=== PATIENT | male | born 1955 | race Caucasian/White ===

== ENCOUNTER → 2020-05-23 | Outpatient (CLI) | payer OTHER ==
[~2020-05-23] VITALS: Ht 182.9 cm; Wt 129.3 kg
[~2020-05-23] MED LIST: BISOPROLOL FUMAR5 MG PO; CELEBREX 200 M200 M1 PO; CHILDREN'S ASPI81 MG PO; CIALIS10 MG PO; LIPITOR40 MG PO; LYRICA 75 MG CA75 MG PO; METFORMIN HCL500 M3 PO; MICARDIS 80 MG80 MG PO; OMEPRAZOLE40 MG PO; PERCOCET 5-3251 EACH PO
--- NOTE | ~2020-05-23 | HPC ---
[facility] [address] [place] [address] PAIN MANAGEMENT CONSULTATION Name: RAMON CEBALLOS JR Room #: REG [facility].#: [id number] Admission: 05/23/20 Attend Phys: Donald Aguilar MD Discharge: Date of : 55 Report #: [id number] CC: Dannielle Aguilar DATE OF SERVICE: 05/23/2020 CHIEF COMPLAINT: Chronic low back pain with spondylosis. This is a new consultation for chronic pain from Dr. Dannielle Hurley. HISTORY OF PRESENT ILLNESS: The patient is a 65-year-old who has had ongoing pain for nearly 20 years. He had severe discomfort across the lumbosacral segment that he describes it as continuous and aching. Despite the use of chronic opioids, he scores his pain as a 9/10. His impacted pain score 51/70, scoring highest for walking ability, enjoyment of life. His pain interferes with many of his day-to-day activities due to discomfort while standing, walking and bending. When he is sedentary either sitting or lying down, his pain diminishes. He has some radicular component to his pain radiating into his right leg. He also complains periodically of neuropathic symptoms with tingling. Prior pain clinic visits occurred a couple of years ago when he saw Dr. Almaguer. An MRI was performed showing severe stenosis and he was referred to Dr. Day for a laminectomy in March 2019. This did provide some relief of leg pain, but he has continued to complain of ongoing lumbago and axial discomfort. MEDICATIONS: Metformin, Celebrex 200 mg b.i.d., Lyrica ____ mg t.i.d., bisoprolol 5 mg one-half tablet daily, atorvastatin 40 mg daily, telmisartan 80 mg daily, omeprazole 40 mg daily, baby aspirin daily and Cialis 10 mg. ALLERGIES: None. PAST MEDICAL HISTORY: Type 2 diabetes. PAST SURGICAL HISTORY: Laminectomy. He also complains of bilateral thumb pain and had a fusion of his left thumb in 2009. 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 He has not had to take off of work because of pain, but complains about his 60 hours schedule. He is 65 and would like to retire sometime in the future. He lives with his on [place] acres in [facility]. His daughter lives with them. He is able to do some chores around the property. They have horses. He denies use of tobacco and alcohol. REVIEW OF SYSTEMS: Positive for blurred vision, hearing loss, chronic constipation, likely due to his opioids and frequent urination. PHYSICAL EXAMINATION: GENERAL: Pleasant, outgoing gentleman. No signs of overt depression or anxiety. He is 6 feet tall, 285 pounds with a BMI of 38.6. VITAL SIGNS: Blood pressure 145/71, pulse 81, respirations 18, O2 sat 99. He can move independently from sitting to standing position, but his gait is markedly antalgic. He has difficulty standing erect. HEENT: Normal. NECK: Supple with some crepitus. CHEST: Clear to auscultation. CARDIAC: Rhythm is regular. ABDOMEN: Soft. MUSCULOSKELETAL: Examination of the upper extremities reveals a very tender right thumb with most of the tenderness at the metacarpophalangeal joint. No redness or swelling. Spine reveals normal alignment and significant tenderness and discomfort across the lumbosacral segment. There is pain with flexion, extension, ougt-uh-tecu rotation and lateral tilt. Both sides were bad, left slightly worse. There is some mild pain, also over the sacroiliac joint. Straight leg raising is remarkable in that it reproduces intensity of spinal discomfort in both the sitting and supine position without radicular pain. Internal and external rotation of the hips causes some discomfort as well, but most of his pain is in his low back. Deep tendon reflexes are 1+ at knees and ankles. Sensation diminished. MRI predates his surgery. He has a history prior to surgery of significant spinal stenosis at L3-L4 and L4-L5 where the thecal sac is narrowed to 0.6 cm. This high-grade stenosis also creates neural foraminal stenosis. IMPRESSION: 1. Chronic intractable pain syndrome. Lumbar spondylosis with radiculopathy, status post laminectomy. 2. Opioid dependence for chronic pain. He has been on opioids for roughly 10 years. He currently uses oxycodone 10/325 five tablets per day. His MME is 75. Prescription drug monitoring program is not available due to filling his prescriptions in [place]. His opioid risk tool score is 0 suggesting low propensity to addiction. 3. Morbid obesity. 4. Type 2 diabetes. 5. Gamekeeper's thumb, right. RECOMMENDATIONS: 1. MRI of the lumbar spine to review changes since surgery. 2. Consider injection therapy. Epidural injection may provide some temporary, but meaningful relief. He may be a candidate for facet treatments with diagnostic injections. 3. I spoke with Dr. Hurley who is no longer seeing new Medicare patients and in fact is encouraging our patients to see new physicians that she will be leaving [facility] in the next 2 months. I will take on opioid prescribing but the patient will need a new primary care physician. We discussed our opioid program and I have signed him to an opioid agreement with the goal of lowering his opioid use to less than 50 morphine milligram equivalents. We will make that foreign exchange position clerk the course of the next couple of months. We reviewed potential risks and benefits and the importance of safeguarding medication. We will discuss further when he returns with his MRI for further evaluation. Followup visit scheduled in 1 week. Injection at that time, likely an epidural steroid injection depending upon what we see on the MRI. By: [id number] Donald Aguilar MD /nt
[2020-05-23 10:43] VITALS: BP 145/71
--- NOTE | 2020-05-23 10:56 | NUR ---
Pain Clinic Assessment: 1. History of Osteoarthritis: SPINE History of Rheumatoid Arthritis: Not Applicable 2. Height: 6 ft. 0 in. 182.9 cm. Weight: 285.0 lb. oz. 129.276 kg. Patient's BMI: 38.6 3. Vital Signs: BP: 145/71 Pulse: 65 Resp: 18 Temp: 02 Sat: 99 ECG Mon: 4. Pain Intensity: 9 5. Fall Risk: Dizziness: N Needs help standing or walking: N Fallen in the last 3 months: N Fall risk comments: 6. Patient on Blood Thinner: None 7. History of Hypertension: Y 8. Opioid Therapy greater than 6 weeks: Y Opiate Contract Signed: 9. Risk Assessment Tool Provided: low-0 10. Functional Assessment Tool: 11. Recreational Drug Use: Never Drug Type: Tobacco Use: Former Smoker Tobacco Type: Amount or Packs/day: How Many Years: Alcohol Use: No Frequency: Quant:
== END ==
LOC: PAIN 06:49
PROVIDERS: ATTEND Anesthesiology Pain Medicine
DX: M47.26 Other spondylosis with radiculopathy, lumbar region (principal); S63.641D Sprain of metacarpophalangeal joint of right thumb, subsequent encounter; E11.9 Type 2 diabetes mellitus without complications; E66.01 Morbid (severe) obesity due to excess calories; F11.20 Opioid dependence, uncomplicated; G89.29 Other chronic pain; Z88.8 Allergy status to other drugs, medicaments and biological substances; Z79.899 Other long term (current) drug therapy

== ENCOUNTER → 2020-06-13 | Outpatient (CLI) | payer OTHER ==
[~2020-06-13] VITALS: Ht 182.9 cm; Wt 137.3 kg
[~2020-06-13] MED LIST changes: +DICLOFENAC SODI75 MG PO; +ENDOCET 10-3251 EACH PO; +PERCOCET 10-321 EAC1 PO
[2020-06-13 08:47] VITALS: BP 133/59
== END | disposition home or self-care (01) ==
LOC: PAIN 06:52
PROVIDERS: ATTEND Anesthesiology Pain Medicine
DX: M47.816 Spondylosis without myelopathy or radiculopathy, lumbar region (principal); M96.1 Postlaminectomy syndrome, not elsewhere classified; G89.29 Other chronic pain; I10 Essential (primary) hypertension; Z98.890 Other specified postprocedural states; Z79.899 Other long term (current) drug therapy; Z87.891 Personal history of nicotine dependence

== ENCOUNTER → 2020-06-15 | Outpatient (CLI) | payer OTHER | LOC: SJCVC 10:39 | PROVIDERS: ATTEND Internal Medicine Cardiovascular Disease | DX: R94.31 Abnormal electrocardiogram [ECG] [EKG] (principal); I25.10 Atherosclerotic heart disease of native coronary artery without angina pectoris; I10 Essential (primary) hypertension; E78.00 Pure hypercholesterolemia, unspecified; E78.5 Hyperlipidemia, unspecified; E11.9 Type 2 diabetes mellitus without complications; G47.33 Obstructive sleep apnea (adult) (pediatric); I44.7 Left bundle-branch block, unspecified; Z79.899 Other long term (current) drug therapy ==

== ENCOUNTER → 2020-06-21 | Outpatient (CLI) | payer OTHER ==
[~2020-06-21] VITALS: Ht 182.9 cm; Wt 132.5 kg
[2020-06-21 09:44] VITALS: BP 126/70
--- NOTE | 2020-06-21 10:02 | NUR ---
Pain Clinic Assessment: 1. History of Osteoarthritis: SPINE History of Rheumatoid Arthritis: Not Applicable 2. Height: 6 ft. 0 in. 182.9 cm. Weight: 292.0 lb. oz. 132.451 kg. Patient's BMI: 39.6 3. Vital Signs: BP: 126/70 Pulse: 60 Resp: 16 Temp: 02 Sat: 98 ECG Mon: 4. Pain Intensity: 7 5. Fall Risk: Dizziness: N Needs help standing or walking: N Fallen in the last 3 months: N Fall risk comments: 6. Patient on Blood Thinner: None 7. History of Hypertension: Y 8. Opioid Therapy greater than 6 weeks: Y Opiate Contract Signed: 9. Risk Assessment Tool Provided: low-0 10. Functional Assessment Tool: 11. Recreational Drug Use: Never Drug Type: Tobacco Use: Former Smoker Tobacco Type: Amount or Packs/day: How Many Years: Alcohol Use: No Frequency: Quant:
--- NOTE | 2020-06-22 11:46 | HPC ---
[facility] [place] [address] PAIN MANAGEMENT CONSULTATION Name: RAMON CEBALLOS JR Room #: REG [facility].#: [id number] Admission: 06/21/20 Attend Phys: Ruslan Hilario DO Discharge: Date of : 55 Report #: [id number] THIS REPORT FOR: cc: Dannielle Hurley MD, Julie MD Johnson, James E. DO ~ DATE OF SERVICE: 06/21/2020 REFERRING PHYSICIAN: Dong Colorado MD CHIEF COMPLAINT: Axial back pain. HISTORY OF PRESENT ILLNESS: As you know, the patient is a very pleasant 65-year-old male, followed by my partner, Dr. Donald Aguilar for chronic axial back pain issues. The patient underwent medial branch nerve blocks under fluoroscopic guidance at the visit of 06/13/2020. The patient reported at the time of the procedure, his pain was a level of 9/10. Prior to his discharge, his pain had dropped to 7/10. Unfortunately, he is on no significant further improvement in symptoms. He returns today in followup visit scheduled to undergo bilateral medial branch blocks again in hopes of improving pain with plans to move forward with radiofrequency lesioning. He is placing his pain at 7/10. The patient indicates pain is exacerbated with standing, walking and bending and improves with sitting, lying down. He returns to discuss the possibility of undergoing the second in the medial branch blocks in preparation for moving forward without radiofrequency lesioning. CURRENT MEDICATIONS: None. SOCIAL HISTORY: The patient denies tobacco, alcohol, IV or illicit drug use. 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 He continues to work. He is unaccompanied today. IMAGING: There is no new imaging available. PQRS: The patient has known arthritic changes of the lumbar spine. No rheumatoid arthritis. He is placing current pain score 7/10. He is not a fall risk, has not had a fall in last 3 months. He is not on blood thinners, but is treated for hypertension. He is on chronic opioids and has a low opioid addiction potential. Pain impact 67, 48/70, severe near complete interference of daily activities secondary to pain. PHYSICAL EXAMINATION: VITAL SIGNS: Blood pressure 126/70, pulse 60, respiratory rate 16 and unlabored. The patient is 98% on room air, height 6 feet tall, weight 292 pounds, BMI calculated 39.6. [address] [address] PAIN MANAGEMENT CONSULTATION Name: RAMON CEBALLOS [facility] [id number] Admission: 06/21/20 Attend Phys: Ruslan Hilario DO Discharge: Date of : 55 Report #: [id number] GENERAL: Well-developed, well-nourished, well-hydrated, morbidly obese 65-year-old male appearing stated age, pain is rated as 7/10. HEENT: Normocephalic, atraumatic. Pupils equal, round and reactive. EXTREMITIES: Show no clubbing, no cyanosis. No appreciable edema. MUSCULOSKELETAL: Seated straight leg raising negative. Supine straight leg raising negative. Rosa's test is negative. Modified Gaenslen's positive for axial low back pain. Ankle clonus negative. Babinski is negative. ASSESSMENT: 1. Lumbosacral spondylosis without radiculopathy. 2. Facet arthropathy of the lumbar spine. 3. Chronic low back pain. PLAN: 1. The patient has returned today in followup visit per the request of Dr. Aguilar, his original pain physician to undergo medial branch block #2 in the series. Patient reports minimal benefit with the initial medial branch blocks. We did discuss this with him today. Typically, we do not recommend moving forward with medial branch blocks if the efficacy is not noted to be greater than 60-80% improvement in symptoms. We have discussed this with the patient today. The patient is requesting that we provide medial branch blocks today as he is "not sure he gave the injections there full due." He does note improvement in symptoms that improvement he would rate no greater than 50%. He returns for a second in the series of medial branch blocks. If these are successful, we would then discuss possible undergoing medial branch radiofrequency lesioning. The patient has been advised risks and benefits of this procedure, states understood and wished to proceed. 2. No medication changes made at today's visit. The patient will continue current medical therapy as prior prescribed. 3. The patient will contact our clinic once his symptoms return to a normal baseline pain level. At that time, we will discuss with the patient the improvement, he may have noted with her medial branch blocks today. If he does note significant pain improvement, we would recommend moving forward with radiofrequency lesioning. If no significant pain improvement is noted, I would not recommend moving forward with radiofrequency lesioning as the symptoms he is experiencing will not resolve with RFA. The patient is agreeable. He will contact our clinic by phone over the next couple of days. PROCEDURE NOTE DESCRIPTION OF PROCEDURE: Bilateral L2, L3, L4, L5 medial branch nerve blocks under fluoroscopic guidance. This is the second of 2 diagnostic medial branch blocks on the right and left sides that the patient is undergoing. After obtaining written consent, the patient was taken back to the fluoroscopy [address] [address] PAIN MANAGEMENT CONSULTATION Name: RAMON CEBALLOS Room #: REG [facility]#: [id number] Admission: 06/21/20 Attend Phys: Ruslan Hilario DO Discharge: Date of : 55 Report #: [id number] and placed in a prone position on the fluoroscopy table with a pillow under the abdomen to decrease the lumbar lordosis. The skin overlying the lumbosacral area was prepped and draped in an aseptic fashion. The L3 transverse process corresponding to the L2 medial branch nerve, L4 transverse process corresponding to the L3 medial branch nerve and L5 transverse process corresponding to the L4 medial branch nerve on the right and left sides was visualized under AP fluoroscopy. The skin and subcutaneous tissue overlying the target site(s) of injection were anesthetized using 2 mL of 1% lidocaine. A 22-gauge 3-1/2 inch spinal needle with a bent tip was advanced under fluoroscopic guidance using a superior to inferior and lateral to medial approach to the dorsal, superior and medial aspect of the base of the transverse process(es). The needles were then directed ventral, medial and caudad to reach the target location(s). An oblique view facilitated needle placement with properly positioned needles(s) in the middle of the "eye" of the Francisco dog for the medial branch block(s). At each site the needle(s) rested on periosteum. After negative aspiration for heme or CSF, 0.5 mL of lidocaine 2% was slowly injected at each site to avoid forcing the solution away from the target points(s). The needle(s) were then removed. The L5 dorsal ramus block on the right and left sides were performed using a slightly oblique approach under fluoroscopic guidance, placing the needle within the groove between the sacral site and the superior articular process of S1. The needle rested on periosteum. After negative aspiration for heme or CSF, 0.5 mL of lidocaine 2% was slowly injected to avoid forcing the solution away from the target point. The needle was then removed. Sterile bandages were placed over the injection site. There were no apparent complications. The patient tolerated the procedure well and was carefully escorted to the recovery room in stable condition. The VAS was 7/10 before the procedure and 3/10 minutes after the procedure. After meeting discharge criteria, the patient was discharged home. <ELECTRONICALLY SIGNED> By: Ruslan Hilario DO 06/22/20 1146 1607 0200 Ruslan Hilario DO /nt
== END | disposition home or self-care (01) ==
LOC: PAIN 06:53
PROVIDERS: ATTEND Anesthesiology Pain Medicine
DX: M47.817 Spondylosis without myelopathy or radiculopathy, lumbosacral region (principal); M47.816 Spondylosis without myelopathy or radiculopathy, lumbar region; M54.5 Low back pain; G89.29 Other chronic pain; I10 Essential (primary) hypertension; Z98.890 Other specified postprocedural states; Z79.891 Long term (current) use of opiate analgesic; Z79.899 Other long term (current) drug therapy

== ENCOUNTER → 2020-07-13 | Outpatient (CLI) | payer OTHER ==
[~2020-07-13] VITALS: Ht 182.9 cm; Wt 132.4 kg
[2020-07-13 12:30] VITALS: BP 107/55
--- NOTE | 2020-07-13 12:45 | NUR ---
Pain Clinic Assessment: 1. History of Osteoarthritis: SPINE right hand History of Rheumatoid Arthritis: Not Applicable 2. Height: 6 ft. 0 in. 182.9 cm. Weight: 291.8 lb. oz. 132.360 kg. Patient's BMI: 39.6 3. Vital Signs: BP: 107/55 Pulse: 54 Resp: 18 Temp: 02 Sat: 100 ECG Mon: 4. Pain Intensity: 8 5. Fall Risk: Dizziness: N Needs help standing or walking: N Fallen in the last 3 months: N Fall risk comments: 6. Patient on Blood Thinner: None 7. History of Hypertension: Y 8. Opioid Therapy greater than 6 weeks: Y Opiate Contract Signed: 05/23/20 9. Risk Assessment Tool Provided: low-0 10. Functional Assessment Tool: 67/7 11. Recreational Drug Use: Never Drug Type: Tobacco Use: Former Smoker Tobacco Type: Amount or Packs/day: How Many Years: Alcohol Use: No Frequency: Quant:
--- NOTE | 2020-07-15 07:25 | HPC ---
[facility] [address] [place] [address] PAIN MANAGEMENT CONSULTATION Name: RAMON CEBALLOS JR Room #: REG [facility]#: [id number] Admission: 07/13/20 Attend Phys: Lilo Shaver Discharge: Date of : 55 Report #: [id number] THIS REPORT FOR: cc: Ander Gleason Steven F. DO Hocker,Lilo SOTO ~ DATE OF SERVICE: 07/13/2020 REFERRING PHYSICIAN: Dong Colorado MD CHIEF COMPLAINT: Axial back pain. HISTORY OF PRESENT ILLNESS: As you know, this is a pleasant 65-year-old gentleman who returns to the pain clinic today for refill of his opioid medications that he uses to help treat his chronic axial back pain issues. He most recently saw Dr. Ruslan Hilario in our pain clinic and had medial branch blocks bilaterally at 4 levels. He found this procedure to be beneficial at least 75% for greater than 5 hours. Then, it slowly returned. He is now back to baseline and rating his pain today at 8/10 in his low back. He does complain of right thumb pain that has osteoarthritic issues. He has a constant, aching soreness, especially when he walks for a prolonged period of time or stands and bends which he is very busy at his [employer] business. He believes aside from the medial branch block being beneficial, so it is lying down and sitting and his medications. The patient would like refills of his Lyrica and oxycodone today as well as scheduling another medial branch block with Dr. Ruslan Hilario in preparation for hopefully having a radiofrequency ablation if his second block is beneficial. CURRENT MEDICATIONS: Oxycodone 10/325 p.r.n., Voltaren 75 mg b.i.d., aspirin, omeprazole, Micardis, Lipitor, buspirone, Lyrica 75 mg t.i.d., and metformin. PQRS: 1. He has known arthritic changes of his lumbar spine. Denies any rheumatoid arthritis. 2. Height is 6 feet, weight is 291, BMI is 39. 3. Vital signs: 107/55, pulse is 54, respirations 18, oxygen sat is 100. 4. Pain score is 8/10. 5. Denies dizziness, does not need assistance with ambulation. Has not fallen in the last 3 months. 6. The patient is not on any blood thinners, but does take medicine for hypertension. 7. Opioid therapy is greater than 6 weeks; therefore, an opioid signed contract is on the chart. Risk assessment is low. Functional assessment 67/70. 8. Recreational drug use, he denies. He is a former smoker and does not drink alcohol. [address] [address] PAIN MANAGEMENT CONSULTATION Name: RAMON CEBALLOS JR Room #: REG [facility]#: [id number] Admission: 07/13/20 Attend Phys: Lilo Shaver Discharge: Date of : 55 Report #: [id number] According to the prescription monitoring system, the patient is filling appropriately. He did bring his prescription bottle with him today and shows 6 tablets of his medication left. His morphine mEq according to the CDC guidelines is 60 MME. There is a recent opioid agreement on our chart. PHYSICAL EXAMINATION: GENERAL: This is alert and orientated, well-developed, well-nourished, well-hydrated, morbidly obese 65-year-old gentleman who appears his stated age, placing his current pain score at 8/10. HEENT: Normocephalic, atraumatic. Pupils equal, round and reactive to light. He is wearing a mask. EXTREMITIES: No clubbing, no cyanosis, no edema. MUSCULOSKELETAL: Modified Gaenslen's positive for axial low back pain. Seated straight leg raising is negative. Lower extremity strength is symmetrical at 5/5. ASSESSMENT: 1. Lumbar spondylosis without radiculopathy. 2. Facet arthroscopy of the lumbar spine. 3. Chronic low back pain. 4. Lumbar spondylosis. We reviewed the fact that opiate medications are being used to provide analgesia adequate to support activities of daily living, not attempting to achieve a specific pain score on the 0-10 Visual Analog Scale. The current opiate medications are providing sufficient analgesia to allow the patient to participate in activities of daily living. The patient is not exhibiting any aberrant behavior suggestive of drug diversion. The patient is not having any adverse reactions to medications. The patient is not suffering from daytime somnolence or mental acuity changes. The patient is managing opiate-induced constipation with appropriate bsje-aah-fmgyffl agents and dietary considerations. The patient was counseled on concern for caution with operating a motor vehicle while using opiate medications. A physical exam was performed and the patient's functional status was evaluated. All patients with back pain were advised against the bed rest greater than 4 days and were advised to return to normal activities. Pain score assessment was noted and the treatment plan was reviewed with the patient. All current medications, both prescribed and OTC were reviewed and reconciled on the electronic medical record. Tobacco screening was accomplished and smoking cessation was advised when indicated. BMI was noted and diet/exercise modification was recommended for all patients following outside normal parameters. I reviewed with the patient today their responsibilities to [address] [address] PAIN MANAGEMENT CONSULTATION Name: RAMON CEBALLOS JR Room #: REG [facility]#: [id number] Admission: 07/13/20 Attend Phys: Lilo Shaver Discharge: Date of : 55 Report #: [id number] prescription medications, reviewed their responsibility to utilize medications only as prescribed by the physician. They are to seek and receive pain medications only from 1 physician group ( [facility]). They are to use 1 pharmacy and keep the clinic informed if they change pharmacies. Their responsibilities include making followup visits in a timely fashion and to avoid abrupt discontinuation of medication usage. Their responsibilities further include bringing their medications (bottles from the pharmacy with residual pills) to the visit for possible confirmation of pill counts and the patient understands it is their responsibility to submit to random drug screens to ensure both that the medications prescribed are present, and that no other controlled substances are present. All prescriptions provided today were generated electronically. PLAN: 1. We discussed treatment options with the patient today. He finds his medication beneficial in helping control his pain. Unfortunately, he feels that 5 pills of oxycodone was more beneficial than the 4 that we are allowing him to take. I offered him the option of taking 1 supplemental Tylenol twice a day. This would increase his Tylenol intake to 2025 mg per day, well below the limits. We will have Dr. Ruslan Hilario send electronically his oxycodone , #120 to his local pharmacy. 2. The patient does continue his Lyrica medications for his diabetic neuropathy that he finds beneficial in helping his foot pain. Dr. Ruslan Hilario will have a script written for Lyrica 75 mg t.i.d., #270 with 1 refill that the patient may take with him to send to his mail off. The patient would like to schedule his second medial branch block with Dr. Ruslan Hilario since his first one did afford him significant relief of at least 75%. We will seek authorization and schedule that next week for the patient to undergo bilateral L2, L3, L4, L5 medial branch nerve blocks under fluoroscopy. These will be diagnostic tests. If they are beneficial, then we will continue with scheduling him for a radiofrequency ablation. 3. The patient is seen today in collaboration with Dr. Ruslan Hilario. <ELECTRONICALLY SIGNED> By: Lilo Shaver 07/15/20 0725 [id number] 2038 Lilo Shaver /nt
== END ==
LOC: PAIN 06:58
PROVIDERS: ATTEND Clinical Nurse Specialist Adult Health
DX: M47.26 Other spondylosis with radiculopathy, lumbar region (principal); G89.29 Other chronic pain; Z79.891 Long term (current) use of opiate analgesic; Z79.899 Other long term (current) drug therapy

== ENCOUNTER → 2020-07-19 | Outpatient (CLI) | payer OTHER ==
[~2020-07-19] VITALS: Ht 182.9 cm; Wt 131.1 kg
[~2020-07-19] MED LIST changes: +ACETAMINOPHEN500 MG PO
--- NOTE | ~2020-07-19 | HPC ---
[facility] [place] [address] PAIN MANAGEMENT CONSULTATION Name: RAMON CEBALLOS JR Room #: REG [facility].#: [id number] Admission: 07/19/20 Attend Phys: Ruslan Hilario DO Discharge: Date of : 55 Report #: [id number] THIS REPORT FOR: cc: Ander Gleason Steven F. DO Johnson, James E. DO ~ DATE OF SERVICE: 07/19/2020 REFERRING PHYSICIAN: Dr. Dong [place]. CHIEF COMPLAINT: Axial back pain. HISTORY OF PRESENT ILLNESS: As you know, the patient is a pleasant 65-year-old male who returns today in followup visit to undergo medial branch blocks to address the L2, L3, L4, L5 medial branch nerves bilaterally. The patient underwent medial branch blocks at our last visit with reported improvement in symptoms of 80% noted immediately with recurrence of symptoms about 6 hours later. This was consistent with medial branch block. He was established today's appointment to undergo the next in the series. He is placing pain today at 02/04. ALLERGIES: No known drug allergies. CURRENT MEDICATIONS: Acetaminophen, oxycodone, pregabalin, diclofenac, Cialis, aspirin, omeprazole, telmisartan, atorvastatin, bisoprolol, and metformin. SOCIAL HISTORY: The patient denies tobacco, alcohol, IV or illicit drug use. He is unaccompanied at today's visit. IMAGING: No new imaging available. PQRS: The patient has known arthritic changes of the lumbar spine. Denies rheumatoid arthritis. He is placing current pain intensity at 7/10, not a fall risk, has not had a fall in last 3 months. He is not on blood thinners, but is treated for hypertension. He is on chronic opioids and has reportedly low opioid addiction potential based on assessment tool. Pain impact 67 of 70 indicating complete interference of daily activities secondary to pain. PHYSICAL EXAMINATION: VITAL SIGNS: Blood pressure 122/60, pulse is 63, respiratory rate 16 and unlabored. The patient is 100% on room air. Height is 6 feet tall, weight 289 pounds, BMI calculated 39.2. GENERAL: Well-developed, well-nourished, well-hydrated exogenously obese 65-year-old male appearing stated age, pain is rated at 7/10. HEENT: Normocephalic, atraumatic. Pupils equal, round and reactive. The patient is using a face mask in compliance with COVID-19 [place] [address] PAIN MANAGEMENT CONSULTATION Name: LINRAMON NAVA Room #: REG [facility]#: [id number] Admission: 07/19/20 Attend Phys: Ruslan Hilario DO Discharge: Date of : 55 Report #: [id number] EXTREMITIES: Show no clubbing, no cyanosis, no edema. MUSCULOSKELETAL: Lower extremity strength appears symmetrical 5/5. Muscle bulk and tone equal and symmetrical in comparing lower extremities. Seated straight leg raising negative. Supine straight leg raising negative. Rosa's test is negative. Modified Gaenslen's positive for axial low back pain. Lumbar provocation testing including extension, rotation, lateral flexion all intensify axial back pain. ASSESSMENT: 1. Lumbosacral spondylosis without radiculopathy. 2. Facet arthropathy of the lumbar spine. 3. Chronic low back pain. 4. Chronic intractable pain. PLAN: 1. The patient returns today in followup visit to undergo medial branch blocks to address bilateral medial branch nerves of L2, L3, L4 and L5. The patient did very well with previous injection reporting 80% improvement in overall pain initially with a progression of symptoms back to baseline over a period of 6 hours. He returns today in followup visit to undergo the next in the series of blocks. As you are aware, the patient had difficulty with the first set of blocks. They did not provide any improvement. Second set of blocks provided excellent benefit. He has returned today to undergo blocking of the medial branch nerves. If this is then successful, move forward with radiofrequency lesioning. The patient is agreeable with plan. He has been advised risks and benefits, states understood and wished to proceed. 2. No medication changes made at today's visit. The patient will continue current medical therapy as prior prescribed. PROCEDURE NOTE DESCRIPTION OF PROCEDURE: Bilateral L2, L3, L4, L5 medial branch nerve blocks under fluoroscopic guidance. This is the third of 2 diagnostic medial branch blocks on the right and left side that the patient is undergoing. After obtaining written consent, the patient was taken back to the fluoroscopy suite and placed in a prone position on the fluoroscopy table with a pillow under the abdomen to decrease the lumbar lordosis. The skin overlying the lumbosacral area was prepped and draped in an aseptic fashion. The L3 transverse process corresponding the L2 medial branch nerve, L4 transverse process corresponding the L3 medial branch nerve and the L5 transverse process corresponding the L4 medial branch nerve on the right and left side was visualized under AP fluoroscopy. The skin and subcutaneous tissue overlying the target sites of injection were anesthetized using 2 mL of 1% lidocaine. [address] [address] PAIN MANAGEMENT CONSULTATION Name: RAMON CEBALLOS JR [id number] Admission: 07/19/20 Attend Phys: Ruslan MillerNuris Hilario DO Discharge: Date of : 55 Report #: [id number] 22-gauge 3-1/2 inch spinal needle with a bent tip was advanced under fluoroscopic guidance using a superior to inferior and lateral to medial approach to the dorsal, superior and medial aspect of the base of the transverse processes. The needles were then directed ventral, medial and caudad to reach the target locations. An oblique view facilitated needle placement with properly positioned needles in the middle of the "eye" of the Francisco dog for the medial branch blocks. At each site the needles rested on periosteum. After negative aspiration for heme or CSF, 0 mL of Omnipaque dye was injected at each site under live fluoroscopy, demonstrating absence of vascular uptake. After negative aspiration for heme or CSF, 1 mL of bupivacaine 0.5% was slowly injected at each site to avoid forcing the solution away from the target points. The needles were then removed. The L5 dorsal ramus block on the right and left side was performed using a slightly oblique approach under fluoroscopic guidance, placing the needle within the groove between the sacral site and the superior articular process of S1. The needle rested on periosteum. After negative aspiration for heme or CSF, 0 mL of Omnipaque dye was injected at under live fluoroscopy, demonstrating absence of vascular uptake. After negative aspiration for heme or CSF, 1 mL of bupivacaine 0.5% was slowly injected to avoid forcing the solution away from the target point. The needle was then removed. Sterile bandages were placed over the injection site. There were no apparent complications. The patient tolerated the procedure well and was carefully escorted to the recovery room in stable condition. The VAS was 7/10 before the procedure and 1/10 minutes after the procedure. After meeting discharge criteria, the patient was discharged home. By: [id number] Ruslan Hilario DO /nt
[2020-07-19 13:41] VITALS: BP 122/60
--- NOTE | 2020-07-19 13:50 | NUR ---
Pain Clinic Assessment: 1. History of Osteoarthritis: SPINE right hand History of Rheumatoid Arthritis: Not Applicable 2. Height: 6 ft. 0 in. 182.9 cm. Weight: 289.0 lb. oz. 131.090 kg. Patient's BMI: 39.2 3. Vital Signs: BP: 122/60 Pulse: 63 Resp: 16 Temp: 02 Sat: 100 ECG Mon: 4. Pain Intensity: 7 5. Fall Risk: Dizziness: N Needs help standing or walking: N Fallen in the last 3 months: N Fall risk comments: 6. Patient on Blood Thinner: None 7. History of Hypertension: Y 8. Opioid Therapy greater than 6 weeks: Y Opiate Contract Signed: 05/23/20 9. Risk Assessment Tool Provided: low-0 10. Functional Assessment Tool: 67/7 11. Recreational Drug Use: Never Drug Type: Tobacco Use: Former Smoker Tobacco Type: Amount or Packs/day: How Many Years: Alcohol Use: No Frequency: Quant:
== END | disposition home or self-care (01) ==
LOC: PAIN 07:00
PROVIDERS: ATTEND Anesthesiology Pain Medicine
DX: M47.817 Spondylosis without myelopathy or radiculopathy, lumbosacral region (principal); M47.816 Spondylosis without myelopathy or radiculopathy, lumbar region; M54.5 Low back pain; G89.29 Other chronic pain; I10 Essential (primary) hypertension; Z98.890 Other specified postprocedural states; Z79.899 Other long term (current) drug therapy; Z79.891 Long term (current) use of opiate analgesic

== ENCOUNTER → 2020-08-23 | Outpatient (CLI) | payer OTHER ==
[~2020-08-23] VITALS: Ht 182.9 cm; Wt 129.2 kg
[2020-08-23 07:38] VITALS: BP 104/43
--- NOTE | 2020-08-23 07:42 | NUR ---
Pain Clinic Assessment: 1. History of Osteoarthritis: SPINE right hand History of Rheumatoid Arthritis: Not Applicable 2. Height: 6 ft. 0 in. 182.9 cm. Weight: 284.8 lb. oz. 129.185 kg. Patient's BMI: 38.6 3. Vital Signs: BP: 104/43 Pulse: 46 Resp: 18 Temp: 02 Sat: 100 ECG Mon: 4. Pain Intensity: 7 5. Fall Risk: Dizziness: N Needs help standing or walking: N Fallen in the last 3 months: N Fall risk comments: 6. Patient on Blood Thinner: None 7. History of Hypertension: Y 8. Opioid Therapy greater than 6 weeks: Y Opiate Contract Signed: 05/23/20 9. Risk Assessment Tool Provided: low-0 10. Functional Assessment Tool: 67/7 11. Recreational Drug Use: Never Drug Type: Tobacco Use: Former Smoker Tobacco Type: Amount or Packs/day: How Many Years: Alcohol Use: No Frequency: Quant:
--- NOTE | 2020-08-24 16:12 | HPC ---
[address] [address] PAIN MANAGEMENT CONSULTATION Name: RAMON CEBALLOS JR [id number] Admission: 08/23/20 Attend Phys: Ruslan Hilario DO Discharge: Date of : 55 Report #: [id number] THIS REPORT FOR: cc: Ander Gleason Steven F. DO Johnson, James E. DO ~ DATE OF SERVICE: 08/23/2020 REFERRING PHYSICIAN: Ander Gleason MD CHIEF COMPLAINT: Axial back pain. HISTORY OF PRESENT ILLNESS: As you know, the patient is a very pleasant 65-year-old male who returns today in followup visit to undergo bilateral L3, L4, L5 radiofrequency lesioning of the medial branch nerves of the lumbar spine. The patient has completed 2 successful medial branch blocks with greater than 90% improvement in overall pain. He was made today's appointment to undergo bilateral L3, L4, L5 medial branch radiofrequency lesioning in hopes of providing long-term back pain improvement. The patient reports pain level today of 7/10. He denies new injury or trauma that may have led to symptom development. There have been no changes in his medical management that would preclude the patient from undergoing an injection today. ALLERGIES: No known drug allergies. CURRENT MEDICATIONS: See chart. SOCIAL HISTORY: The patient denies tobacco, alcohol, IV or illicit drug use. He is accompanied by his who is present in room today. IMAGING: No new imaging available. PQRS: The patient has known arthritic changes of the lumbar spine. Denies rheumatoid arthritis. He is placing current pain score 7/10. He is not a fall risk, has not had a fall in last 3 months. He is not on blood thinners, but is treated for hypertension. He is on chronic opioids and has a low opiate addiction potential based on assessment tool. Pain impact is 67/70, severe near complete interference of daily activities secondary to pain. PHYSICAL EXAMINATION: VITAL SIGNS: Blood pressure 104/43, pulse 46, respiratory rate 18, unlabored. The patient is 100% on room air, height 6 feet tall, weight 284.8 pounds, BMI calculated 38.6. GENERAL: Well-developed, well-nourished, well-hydrated exogenously obese 65-year-old male appearing stated age, pain is rated today 7/10. HEENT: Normocephalic, atraumatic. Pupils are round and symmetrical. [facility] [address] [place] [address] PAIN MANAGEMENT CONSULTATION Name: RAMON CEBALLOS JR [facility] [id number] Admission: 08/23/20 Attend Phys: Ruslan Hilario DO Discharge: Date of : 55 Report #: [id number] patient is wearing a mask in compliance with COVID-19 regulations. EXTREMITIES: Show no clubbing, no cyanosis. No appreciable edema. MUSCULOSKELETAL: Lower extremity strength equal and symmetrical 5/5. Muscle bulk and tone is symmetrical in comparing lower extremities. Seated straight leg raising negative. Supine straight leg raising negative. Modified Gaenslen's positive for axial low back pain. Lumbar provocation testing remains positive with extension, rotation, and lateral flexion in all planes. Pain is elicited. ASSESSMENT: 1. Lumbosacral spondylosis without radiculopathy. 2. Facet arthropathy of the lumbar spine. 3. Chronic low back pain. 4. Chronic intractable pain. PLAN: 1. The patient returns today in followup visit to undergo radiofrequency lesioning of the medial branch nerves of the lumbar spine. The patient has successfully completed medial branch blocks x 2 with greater than 90% improvement in overall pain. He returns today to undergo bilateral L3, L4, L5 radiofrequency lesioning of the medial branch nerves of the lumbar spine to complete this staged process to obtain improved analgesic benefit. The patient has been advised of the risks and benefits of the procedure, states understood and wished to proceed. 2. No medication changes made at today's visit. The patient will continue current medical therapy as prior prescribed. 3. The patient will be following up with his pain physician, Dr. Donald Aguilar, for further evaluation. We are hopeful the patient will see good and prolonged benefit with today's radiofrequency lesioning. I will see him back in followup visit if he wishes to undergo retreatment of the area if symptoms recur. 4. The patient will return to see Dr. Aguilar if his symptoms require further evaluation. If it is determined the patient is suffering from continued axial back pain, we will see him back to discuss more treatment options. PROCEDURE NOTE DESCRIPTION OF PROCEDURE: Bilateral L3, L4, L5 medial branch nerve radiofrequency lesioning under fluoroscopic guidance. The procedure was explained and informed consent was obtained from the patient. The patient was informed of the risks of procedure including infection, bleeding, nerve damage, failure to produce pain relief and postoperative discomfort lasting for several weeks. After obtaining written consent, a 22-gauge IV Hep-Lock was placed in the patient's left upper extremity. [address] [address] PAIN MANAGEMENT CONSULTATION Name: RAMON CEBALLOS JR Room #: REG [facility]#: [id number] Admission: 08/23/20 Attend Phys: Ruslan Hilario DO Discharge: Date of : 55 Report #: [id number] Prior to the beginning of the procedure, the patient was given 1 mg of Versed for assistance in anxiety. The patient was then taken to the fluoroscopy suite, placed in prone position with pillows under the abdomen to decrease lumbar lordosis. Skin overlying lumbosacral area then prepped and draped in aseptic fashion. AP imaging of the lumbar spine was used to identify the L2 through L5 vertebral bodies and the sacral ala. The target locations of the left and right side of the L4 transverse process corresponding the L3 medial branch nerve and the L5 transverse process corresponding the L4 medial branch nerve were established. Using a 25-gauge 1-1/4 inch needle, skin wheals were placed at each of the sites. The skin wheal was placed at the junction of the transverse process and superior articular process of the caudad vertebrae. We were careful to anesthetize the skin and not the deep tissues. The patient was provided at this time a second mg of Versed IV for anxiolysis. The radiofrequency lesioning needles were then advanced under fluoroscopic guidance using a superior, inferior, lateral to medial approach, the dorsal superior and medial aspect of the base of transverse processes. [place] were then directed caudad to reach target locations. Oblique view facilitated needle placement with properly positioned needles in the middle of the "eye" of the [place] dog. At each site, needles rested on periosteum. Touching the bone initially assured the needles were not placed too deeply. Radiofrequency lesioning of the L5 medial branch nerve, both on the left and right side was performed using a superior, inferior, lateral to medial approach under fluoroscopic guidance, placing both needles within the groove between the sacral ala and the superior articular process of S1. [place] rested on periosteum. Stimulation was performed at each level once the cannulas were in position. Sensory stimulation was performed at each level with good impedance at 50 Hz for the L3, L4, L5 medial branch nerves bilaterally. Good stimulation of the lumbar buttock region was elicited, indicating correct alignment with the posterior primary ramus. Absence of lower motor fasciculation was noted at 3 volts 2 Hz when testing the bilateral L3, L4, L5 medial branch nerves. Following this, affirmation of dissociation between sensory and motor stimulation, negative aspiration was noted for heme or cerebrospinal fluid at each level. Next, 1 mL bupivacaine 0.5% was injected at each site. After a 90-second delay, lesions were performed at a temperature of 80 degrees Celsius for 90 seconds. After the needle tips had cooled, 1 mL of a solution containing 2 mL 40 mg per mL, 80 mg total triamcinolone and 8 mL of bupivacaine 0.5% was injected at each site. The needles were then retracted approximately half way, flushed with 1 mL of 1% lidocaine and removed. Sterile bandage placed over the injection site. There were no new motor deficits in the lower extremities following procedure. The patient tolerated procedure well, carefully escorted [place] [address] PAIN MANAGEMENT CONSULTATION Name: RAMON CEBALLOS JR Room #: REG [facility]#: [id number] Admission: 08/23/20 Attend Phys: Ruslan Hilario DO Discharge: Date of : 55 Report #: [id number] stable condition. No apparent complications. After meeting our discharge criteria, the patient discharged home. <ELECTRONICALLY SIGNED> By: Ruslan Hilario DO 08/24/20 1612 [id number] Ruslan Hilario DO /nt
== END | disposition home or self-care (01) ==
LOC: PAIN 06:48
PROVIDERS: ATTEND Anesthesiology Pain Medicine
DX: M47.817 Spondylosis without myelopathy or radiculopathy, lumbosacral region (principal); M47.816 Spondylosis without myelopathy or radiculopathy, lumbar region; M54.5 Low back pain; G89.29 Other chronic pain; I10 Essential (primary) hypertension; Z98.890 Other specified postprocedural states; Z79.899 Other long term (current) drug therapy; Z79.891 Long term (current) use of opiate analgesic; Z87.891 Personal history of nicotine dependence; Z79.82 Long term (current) use of aspirin

== ENCOUNTER → 2020-09-28 | Outpatient (CLI) | payer OTHER ==
[~2020-09-28] VITALS: Ht 182.9 cm; Wt 133.6 kg
[2020-09-28 12:48] VITALS: BP 129/95
--- NOTE | 2020-09-28 12:57 | NUR ---
Pain Clinic Assessment: 1. History of Osteoarthritis: SPINE right hand History of Rheumatoid Arthritis: Not Applicable 2. Height: 6 ft. 0 in. 182.9 cm. Weight: 294.6 lb. oz. 133.630 kg. Patient's BMI: 39.9 3. Vital Signs: BP: 129/95 Pulse: 64 Resp: 16 Temp: 02 Sat: 97 ECG Mon: 4. Pain Intensity: 7 5. Fall Risk: Dizziness: N Needs help standing or walking: N Fallen in the last 3 months: N Fall risk comments: 6. Patient on Blood Thinner: None 7. History of Hypertension: Y 8. Opioid Therapy greater than 6 weeks: Y Opiate Contract Signed: 05/23/20 9. Risk Assessment Tool Provided: low-0 10. Functional Assessment Tool: 67/7 11. Recreational Drug Use: Never Drug Type: Tobacco Use: Former Smoker Tobacco Type: Amount or Packs/day: How Many Years: Alcohol Use: No Frequency: Quant:
--- NOTE | 2020-09-29 07:48 | HPC ---
[facility] [address] [place] [address] PAIN MANAGEMENT CONSULTATION Name: RAMON CEBALLOS JR Room #: REG [facility].#: [id number] Admission: 09/28/20 Attend Phys: Lilo Shaver Discharge: Date of : 55 Report #: [id number] THIS REPORT FOR: cc: Ander Gleason Steven F. DO Hocker,Lilo Haines DATE OF SERVICE: 09/28/2020 CHIEF COMPLAINT: Axial back pain. HISTORY OF PRESENT ILLNESS: This is a 65-year-old gentleman who returns to the pain clinic today to discuss his opioid medications. Today, he is reporting a pain score of 6-7 in his lower back. He describes it as intermittent, aching sensation that is worse with strenuous activity. If he has moderate activity, his pain is better controlled since his radiofrequency as well as taking his oral medications. His pain is exacerbated by standing, walking and bending. Per his report, his vitnus-cq-sne is currently on hospice and his is caring for her 24 hours a day at her house. The patient goes there about 16 hours a day and is active and moving her in bed. He is home alone, he is having to care for the animals by himself. He has been having to lift hay, which has also aggravated his back pain. Normally, the patient states that if he is sitting or lying down, his pain is very well controlled. The patient does report the radiofrequency ablation that Dr. Ruslan Hilario performed in [place] helped 90% fairly quickly after his procedure. When he does have some strenuous activity, he feels that it is 30% better overall. Overall, he would report an average of 50% improvement since his procedure. He feels that his results may be skewed though in caring for his sxrvmk-ov-dbz and did require lifting that is involved. Unfortunately, he has not been able to give it as much time as he would like for resting. He does report he was able to take less pain medications, taking 3 tablets a day until his mother entered hospice and started caring for her. ALLERGIES: No known drug allergies. CURRENT LIST OF MEDICATIONS: Oxycodone 10/325 p.r.n., acetaminophen, Lyrica, Voltaren, Cialis, aspirin, omeprazole, Micardis, Lipitor, bisoprolol and metformin. PATIENT'S PQRS: 1. The patient has arthritic changes in his lumbar spine. Denies rheumatoid arthritis. 2. Height is 6 feet, weight is 294, BMI is 39. 3. Vital signs 129/95, pulse is 64, respirations 16, oxygen sat is 97%. 4. Pain score is 6-7. 5. Denies dizziness, does not need help walking or standing, [place] [address] PAIN MANAGEMENT CONSULTATION Name: RAMON CEBALLOS Room #: REG [facility] Young#: [id number] Admission: 09/28/20 Attend Phys: Lilo Shaver Discharge: Date of : 55 Report #: [id number] the last 3 months. 6. The patient is not on any blood thinners, but does have medicine for hypertension. 7. Opioid therapy is greater than 6 weeks; therefore, an opioid signed contract is on the chart. Risk assessment is low. Functional assessment 67/70. 8. Recreational drug use, he denies. He is a former smoker and does not drink alcohol. According to the prescription monitoring system, the patient is filling appropriately; we did call the pharmacy to clarify. His morphine milliequivalent according to the CDC guidelines is 45-60 depending on his dose. PHYSICAL EXAMINATION: GENERAL: This is a well-developed, well-nourished, well-hydrated, exogenous obese 65-year-old gentleman who is a good historian, rating his pain score today a 6-7. HEENT: Normocephalic, atraumatic. Pupils equal, round and reactive to light. He is wearing a facemask. EXTREMITIES: No clubbing, no cyanosis, no edema. Some tenderness in his right thumb today. MUSCULOSKELETAL: Lower extremity strength is symmetrical at 5/5 with good sensation from L1-S2. Modified ganglion is positive for axial low back pain. Lumbar provocation testing is met with increased pain in all motions of flexion, extension, rotation, and shvr-uz-onzw tilt. ASSESSMENT: 1. Lumbosacral spondylosis without radiculopathy. 2. Facet arthropathy of the lumbar spine. 3. Chronic low back pain. 4. Chronic intractable pain. We reviewed the fact that opiate medications are being used to provide analgesia adequate to support activities of daily living, not attempting to achieve a specific pain score on the 0-10 Visual Analog Scale. The current opiate medications are providing sufficient analgesia to allow the patient to participate in activities of daily living. The patient is not exhibiting any aberrant behavior suggestive of drug diversion. The patient is not having any adverse reactions to medications. The patient is not suffering from daytime somnolence or mental acuity changes. The patient is managing opiate-induced constipation with appropriate gtik-vql-ohmcskw agents and dietary considerations. The patient was counseled on concern for caution with operating a motor vehicle while using opiate medications. PLAN: 1. We discussed treatment options with the patient today. Unfortunately, he has had mixed results from his radiofrequency ablation. It was at 90% relief, [facility] [address] [place] [address] PAIN MANAGEMENT CONSULTATION Name: LINRAMON ELIJAH [facility] [id number] Admission: 09/28/20 Attend Phys: Lilo Shaver Discharge: Date of : 55 Report #: [id number] then has deteriorated since he has been caring and lifting his iecoqs-pf-zei. Overall, he believes he is at least 50% better. At times, worse pain; other times, pain is much improved. He was able to decrease his overall opioid use from 4 tablets a day to 3 tablets a day before his mother entered hospice. Today, he would like refills of his opioid medications. We did discuss trying to decrease his medications. Unfortunately, the time in his bed with such caring for his llvone-ry-ogj, we will decrease him from 120 tablets to 100 for the next 2 months with our goal to decrease him to 90, possibly decreasing his strength from 10/325 to 7/325. The patient is agreeable with this plan of care. Dr. Ruslan Hilario will send his medications electronically. 2. We did discuss his Lyrica. He continues to take 75 mg tablets, 1 in the morning and 2 at night. He feels that the brand name Lyrica is much more beneficial for him than the generic. He feels that the efficacy of that medication is not as strong and is requesting a brand name script today. Scripts were written by Dr. Hilario. The patient will return the 07/13/2020 script that he has not filled. The patient will send a new one off to his mail-off pharmacy. 3. We did discuss hospice care and help with pain control and ways for him to move his rhikja-df-iix without hurting his back; the patient is thankful for this advice. Time spent with the patient today in consultation and exam at least 17 minutes. Prior to the appointment, I reviewed his chart and any pertinent medical documentation including physician notes. Time also spent reviewing prescription monitoring system, side effects of medications, sent scripts electronically and documentation; time spent at least another 15 minutes. Total time of 32 minutes spent. <ELECTRONICALLY SIGNED> By: Lilo Shaver 09/29/20 0748 [id number] Lilo Shaver /nt
== END ==
LOC: PAIN 06:46
PROVIDERS: ATTEND Clinical Nurse Specialist Adult Health
DX: M47.817 Spondylosis without myelopathy or radiculopathy, lumbosacral region (principal); G89.29 Other chronic pain

== ENCOUNTER → 2020-11-29 | Outpatient (CLI) | payer OTHER ==
[~2020-11-29] VITALS: Ht 182.9 cm; Wt 134.6 kg
[~2020-11-29] MED LIST changes: +LYRICA150 MG PO
[2020-11-29 08:54] VITALS: BP 116/69
--- NOTE | 2020-11-29 09:01 | NUR ---
Pain Clinic Assessment: 1. History of Osteoarthritis: SPINE right hand History of Rheumatoid Arthritis: Not Applicable 2. Height: 6 ft. 0 in. 182.9 cm. Weight: 296.8 lb. oz. 134.628 kg. Patient's BMI: 40.2 3. Vital Signs: BP: 116/69 Pulse: 56 Resp: 14 Temp: 02 Sat: 99 ECG Mon: 4. Pain Intensity: 4 5. Fall Risk: Dizziness: N Needs help standing or walking: N Fallen in the last 3 months: N Fall risk comments: 6. Patient on Blood Thinner: None 7. History of Hypertension: Y 8. Opioid Therapy greater than 6 weeks: Y Opiate Contract Signed: 05/23/20 9. Risk Assessment Tool Provided: low-0 10. Functional Assessment Tool: 67/7 11. Recreational Drug Use: Never Drug Type: Tobacco Use: Former Smoker Tobacco Type: Amount or Packs/day: How Many Years: Alcohol Use: No Frequency: Quant:
== END ==
LOC: PAIN 07:19
PROVIDERS: ATTEND Clinical Nurse Specialist Adult Health
DX: Z76.0 Encounter for issue of repeat prescription (principal); M54.5 Low back pain; M79.644 Pain in right finger(s); M25.552 Pain in left hip; M25.551 Pain in right hip; E11.51 Type 2 diabetes mellitus with diabetic peripheral angiopathy without gangrene; Z87.891 Personal history of nicotine dependence; Z79.899 Other long term (current) drug therapy

== ENCOUNTER → 2021-02-07 | Outpatient (CLI) | payer OTHER ==
[~2021-02-07] VITALS: Ht 182.9 cm; Wt 133.9 kg
[2021-02-07 10:57] VITALS: BP 114/78
--- NOTE | 2021-02-07 11:09 | NUR ---
Pain Clinic Assessment: 1. History of Osteoarthritis: SPINE right hand History of Rheumatoid Arthritis: Not Applicable 2. Height: 6 ft. 0 in. 182.9 cm. Weight: 295.2 lb. oz. 133.902 kg. Patient's BMI: 40.0 3. Vital Signs: BP: 114/78 Pulse: 61 Resp: 16 Temp: 02 Sat: 97 ECG Mon: 4. Pain Intensity: 5 5. Fall Risk: Dizziness: N Needs help standing or walking: N Fallen in the last 3 months: N Fall risk comments: 6. Patient on Blood Thinner: None 7. History of Hypertension: Y 8. Opioid Therapy greater than 6 weeks: Y Opiate Contract Signed: 05/23/20 9. Risk Assessment Tool Provided: low-0 10. Functional Assessment Tool: 11. Recreational Drug Use: Never Drug Type: Tobacco Use: Former Smoker Tobacco Type: Amount or Packs/day: How Many Years: Alcohol Use: No Frequency: Quant:
--- NOTE | 2021-02-08 07:54 | HPC ---
[facility] [address] [address] PAIN MANAGEMENT CONSULTATION Name: RAMON CEBALLOS JR Room #: REG [facility] Patience.#: [id number] Admission: 02/07/21 Attend Phys: Lilo Shaver Discharge: Date of : 55 Report #: [id number] THIS REPORT FOR: cc: Ander Gleason,Lilo Jurado ~ cc: Ander Gleason MD, Ruslan Hilario DO DATE OF SERVICE: 02/07/2021 CHIEF COMPLAINT: Axial back pain and lumbar radiculopathy. HISTORY OF PRESENT ILLNESS: This is a 65-year-old gentleman who returns to the pain clinic today to discuss his ongoing pain generators. Today, he is reporting a pain score of 5/10, most problematic area is in his right buttock radiating to the posterior portion of his right leg. He reports also some ongoing low back pain, describing his pain as an aching, intermittent grabbing cramping sensation that is worse with driving, prolonged standing, bending, and certain activities. Today, he does report a pain score of 5/10 and reports that lying down is his most beneficial positions. He does fine taking the medications beneficial for pain. The patient reports that he has been doing physical therapy for the last 2 months and has not noticed a change in his pain in his right extremity and is wondering if we have other options for him. He also reports that he has not been taking the Lyrica due to the cost. In the past, he had reported having issues with the generic Lyrica, so we had ordered that a prior authorization for a brand name, Lyrica, but it was significant cost to him, so he has not been utilizing this medication. Due to this not taking any neuropathic medications, he has noticed an increase in his pain, especially his neuropathy in his feet due to his diabetes. ALLERGIES: No known drug allergies. MEDICATIONS: Lyrica, oxycodone 10/325 p.r.n., Tylenol Extra Strength, Voltaren 75 mg, Cialis, aspirin, omeprazole, Micardis, Lipitor, ____, and metformin. PQRS: 1. He has history of osteoarthritis in his spine and right hand. Denies any rheumatoid arthritis. Height is 6 feet, weight is 295. BMI is 40. 2. Vital signs; blood pressure 114/78, pulse is 61, respirations 16, oxygen sat is 97%. 3. Pain score is 5/10. 4. Denies dizziness, does not need help walking or standing, has not fallen in the last 3 months. 5. The patient is not on any blood thinners, but does [place] [address] PAIN MANAGEMENT CONSULTATION Name: RAMON CEBALLOS JR Room #: REG [facility] Young#: [id number] Admission: 02/07/21 Attend Phys: Lilo Shaver Discharge: Date of : 55 Report #: [id number] 6. Opioid therapy is greater than 6 weeks; therefore, an opioid signed contract is on the chart. 7. Risk assessment is low. Functional assessment is 45/70. 8. Recreational drug use, he denies. He is a former smoker and does not drink alcohol. According to the prescription monitoring system, the patient is due to fill his medications filling in a timely fashion. His morphine mEq according to the CDC guidelines less than 30. PHYSICAL EXAMINATION: GENERAL: This is alert and orientated well-developed, well-nourished, morbidly obese 65-year-old gentleman who appears his stated age, rating his pain score today at 5/10. HEENT: Normocephalic and atraumatic. Extraocular eye muscles are intact. Mucous membranes are moist. He is wearing a mask. EXTREMITIES: No clubbing, no cyanosis, no edema. MUSCULOSKELETAL: Modified ganglion is positive for axial low back pain. He has increased pain in the lumbosacral region radiating down the L5-S1 dermatomal distribution on the right ____ his knee at this present time. Lower extremity strength is symmetrical at 5/5. He does have an antalgic gait. ASSESSMENT: 1. Lumbar sacral spondylosis with radiculopathy. 2. Lumbar radiculopathy at the L5-S1 dermatomal distribution. 3. Facet arthroscopy of the lumbar spine. 4. Chronic low back pain. 5. Chronic intractable pain. 6. Diabetic neuropathy. 7. Complex medical management under written agreement of scheduled medications. We reviewed the fact that opiate medications are being used to provide analgesia adequate to support activities of daily living, not attempting to achieve a specific pain score on the 0-10 Visual Analog Scale. The current opiate medications are providing sufficient analgesia to allow the patient to participate in activities of daily living. The patient is not exhibiting any aberrant behavior suggestive of drug diversion. The patient is not having any adverse reactions to medications. The patient is not suffering from daytime somnolence or mental acuity changes. The patient is managing opiate-induced constipation with appropriate when-hlb-jgkbraa agents and dietary considerations. The patient was counseled on concern for caution with operating a motor vehicle while using opiate medications PLAN: 1. We discussed treatment options with the patient today. I encouraged the patient to restart his Lyrica filling in a generic to see if the change in dose [facility] [address] [place] [address] PAIN MANAGEMENT CONSULTATION Name: RAMON CEBALLOS Room #: REG [facility] Young#: [id number] Admission: 02/07/21 Attend Phys: Lilo CHARLES Shaver Discharge: Date of : 55 Report #: [id number] is more beneficial in helping reduce his pain. According to his history, it sounds like he was on max of 210 mg per day, we have ordered a total dose of 300 mg ____ for him to try and start 1 at bedtime for four days, then increase to 1 in the morning, 1 at night to see if this is beneficial in helping reduce some of his radiculopathy as well as helping to decrease the pain that he is having from his diabetes in his feet. 2.If pain has not subsided in the next 2 weeks. The patient is instructed to call for an appointment for a lumbar epidural steroid injection by Dr. Ruslan Hilario to see if that can ease some of the L5-S1 dermatomal distribution pain that he is experiencing that is on his right buttock into his right leg. 3. We will continue him on his Percocet , #90. These will be sent electronically by Dr. Ruslan Hilario for today and four week release. 4. The patient has finished 2 months of physical therapy, has not found this beneficial in reducing this radicular pain. I encouraged the patient to continue his stretching at home that he has been taught to do, but will no longer continue outpatient physical therapy. 5. The patient will call in the next 2 weeks to report how he is doing and schedule an appointment as needed. Time spent with the patient in consultation, reviewing recent studies and clinical notes and physician reports, physical examination and correlation of findings and medical documentation to determine possible treatment options 17 minutes. Time spent and preparation for appointment reviewing prescription monitoring system reports, reviewing previous records and proposed treatment options, reviewing current medications 5 minutes. Time spent preparing and sending electronic prescriptions with collaborating physician, Dr. Ruslan Hilario, documentation of visit and plan of treatment 5 minutes. Total time spent 27 minutes. <ELECTRONICALLY SIGNED> By: Lilo Shaver 02/08/21 0754 [id number] Lilo Shaver /nt
== END ==
LOC: PAIN 07:53
PROVIDERS: ATTEND Clinical Nurse Specialist Adult Health
DX: M47.27 Other spondylosis with radiculopathy, lumbosacral region (principal); G89.4 Chronic pain syndrome; E11.40 Type 2 diabetes mellitus with diabetic neuropathy, unspecified; Z79.891 Long term (current) use of opiate analgesic; Z79.899 Other long term (current) drug therapy

== ENCOUNTER → 2021-02-22 | Outpatient (CLI) | payer OTHER ==
[~2021-02-22] VITALS: Ht 182.9 cm; Wt 133.6 kg
[2021-02-22 09:23] VITALS: BP 108/55
--- NOTE | 2021-02-22 09:31 | NUR ---
Pain Clinic Assessment: 1. History of Osteoarthritis: SPINE right hand History of Rheumatoid Arthritis: Not Applicable 2. Height: 6 ft. 0 in. 182.9 cm. Weight: 294.6 lb. oz. 133.630 kg. Patient's BMI: 39.9 3. Vital Signs: BP: 108/55 Pulse: 65 Resp: 16 Temp: 02 Sat: 96 ECG Mon: 4. Pain Intensity: 3 5. Fall Risk: Dizziness: N Needs help standing or walking: N Fallen in the last 3 months: N Fall risk comments: 6. Patient on Blood Thinner: None 7. History of Hypertension: Y 8. Opioid Therapy greater than 6 weeks: Y Opiate Contract Signed: 05/23/20 9. Risk Assessment Tool Provided: low-0 10. Functional Assessment Tool: 11. Recreational Drug Use: Never Drug Type: Tobacco Use: Former Smoker Tobacco Type: Amount or Packs/day: How Many Years: Alcohol Use: No Frequency: Quant:
--- NOTE | 2021-02-28 08:01 | HPC ---
[facility] [address] [place] [address] PAIN MANAGEMENT CONSULTATION Name: RAMON CEBALLOS JR Room #: REG [facility] Patience.#: [id number] Admission: 02/22/21 Attend Phys: Ruslan Hilario DO Discharge: Date of : 55 Report #: [id number] THIS REPORT FOR: cc: Ander Gleason,Ruslan Wong DO ~ cc: Ander Gleason MD DATE OF SERVICE: 02/22/2021 CHIEF COMPLAINT: Low back pain, right lower extremity pain with paresthesias. HISTORY OF PRESENT ILLNESS: As you know, the patient is a very pleasant 65-year-old male returning today in followup visit with acute onset of low back pain, right lower extremity pain with paresthesias. The patient had been treated previously for facet arthropathy pain, undergoing radiofrequency lesioning of medial branch nerve of the lumbar spine with near complete resolution of his axial back pain. He states that he was doing very well until just recently where he began to experience bilateral buttock and right hip pain radiating down the leg. He reports pain today at a level of 3/10. He states he has not experienced this pain in the past. He has done nothing that he can remember that may have caused symptoms. He has had no new injury and no trauma. He returns today to discuss his concerns about bilateral buttock and right lower extremity pain. ALLERGIES: No known drug allergies. CURRENT MEDICATIONS: Oxycodone, pregabalin, acetaminophen, diclofenac, Cialis, aspirin, omeprazole, telmisartan, atorvastatin, bisoprolol, metformin. SOCIAL HISTORY: The patient denies tobacco, alcohol or IV or illicit drug use. He is unaccompanied at today's visit. PQRS: The patient has known arthritic changes of lumbar spine and right hand. No reported rheumatoid arthritis. He places current pain score at 3/10. He is not a fall risk, does not have fall in last 3 months. He is not on blood thinners, but is treated for hypertension. He is on chronic opioids as a low opiate addiction potential. Pain impact is 45/70, moderate to severe interference of daily activities secondary to pain. PHYSICAL EXAMINATION: VITAL SIGNS: Blood pressure 108/55, pulse 65, respiratory rate 16 and unlabored. The patient is 96% on room air, height 6 feet tall, weight 294.6 pounds, BMI calculated 39.9. GENERAL: Well-developed, well-nourished, well-hydrated, class 2 morbidly obese, 65-year-old male, appearing stated age, pain is rated at 3/10. HEENT: Normocephalic, atraumatic. Pupils equal, round and responsive. [address] [address] PAIN MANAGEMENT CONSULTATION Name: RAMON CEBALLOS Room #: REG [facility] Hannah#: [id number] Admission: 02/22/21 Attend Phys: Ruslan Hilario DO Discharge: Date of : 55 Report #: [id number] EXTREMITIES: Show no clubbing, no cyanosis and no appreciable edema. MUSCULOSKELETAL: Lower extremity strength is symmetrical, though there is slight giveaway strength noted with hip flexion on the right when compared to left. This is due to pain generation. Seated straight leg raising is negative. Supine straight leg raising is equivocal on the right, negative left. Gait is mildly antalgic favoring left lower extremity over right secondary to pain. Muscle bulk and tone is symmetrical in lower extremities. ASSESSMENT: 1. Lumbar radiculopathy. 2. Lumbosacral spondylosis with radiculopathy. 3. Facet arthropathy of lumbar spine. 4. Chronic low back pain. 5. Diabetic neuropathy. PLAN: 1. The patient returns today in followup visit with onset of bilateral buttock and right lower extremity pain. The patient states he did not have this symptom ever prior. He was complaining of axial back pain. He made today's appointment as his concern for pain and decreasing function became concerning to him. He and I discussed the treatment options for suspected lumbar radiculopathy following was discussed with the patient today. We discussed physical therapy, stretching exercise, core strengthening and a concerted effort at weight loss. We discussed adjustments in medication management, adding neuropathic medication either in addition to the Lyrica or escalating the dose of Lyrica. We discussed epidural injection under fluoroscopic guidance, spinal cord stimulator therapy and ultimately surgical procedure to address symptoms. After reviewing risks and benefits of all proposed treatment options, the patient chose to undergo lumbar epidural injection under fluoroscopic guidance. 2. The patient was provided the risks and the benefits of a lumbar epidural injection. These risks include but are not necessarily limited to bleeding, bruising, infection, worsening pain, no relief of pain, also risk of temporary or permanent muscle weakness, temporary or permanent nerve damage, possible paralysis, and . The patient states understood and wished to proceed. 3. No medication changes made at today's visit. The patient will continue current medical therapy as prior prescribed. 4. I plan to see the patient back for a followup visit on an as needed basis for the next in a series of lumbar epidural injections. We are hopeful the patient will see good and prolonged benefit with today's procedure. PROCEDURE NOTE: DESCRIPTION OF PROCEDURE: L5-S1 right paramedian epidural steroid injection under fluoroscopic guidance. [address] [address] PAIN MANAGEMENT CONSULTATION Name: RAMON CEBALLOS JR [facility] [id number] Admission: 02/22/21 Attend Phys: Ruslan Hilario DO Discharge: Date of : 55 Report #: [id number] After obtaining written consent, the patient was taken back to fluoroscopy suite, placed in prone position with pillow under abdomen to decrease lumbar lordosis. Skin overlying lumbosacral area then prepped and draped in aseptic fashion. The L5-S1 vertebral interspace identified by AP fluoroscopy. Skin and subcutaneous tissue overlying target site injection anesthetized with 3 mL of 1% lidocaine. A 22 gauge 4-1/2 inch Tuohy needle was advanced under fluoroscopic guidance towards the epidural space using a right paramedian approach. Epidural space identified using loss of resistance to air technique. After negative aspiration for heme or cerebrospinal fluid, 1 mL of Omnipaque injected. Lumbar epidurogram was confirmed using both AP and lateral fluoroscopy. After negative aspiration for heme or cerebrospinal fluid, 5 mL of solution containing 2 mL 40 mg per mL, 80 mg total triamcinolone along with 3 mL of lidocaine, 1% injected slowly. Needle retracted [facility] flushed with 1 mL of 1% lidocaine, then removed. Sterile bandage placed over injection site. No new motor deficits present in the lower extremity following procedure. The patient tolerated the procedure well, carefully escorted to recovery room in stable condition. No apparent complications. After meeting discharge criteria, the patient discharged home. <ELECTRONICALLY SIGNED> By: Ruslan Hilario DO 02/28/21800 1049 21 Ruslan Hilario DO /nt
== END | disposition home or self-care (01) ==
LOC: PAIN 06:57
PROVIDERS: ATTEND Anesthesiology Pain Medicine
DX: M54.5 Low back pain (principal); G89.29 Other chronic pain; M47.27 Other spondylosis with radiculopathy, lumbosacral region; M47.26 Other spondylosis with radiculopathy, lumbar region; E11.40 Type 2 diabetes mellitus with diabetic neuropathy, unspecified; I10 Essential (primary) hypertension; M19.90 Unspecified osteoarthritis, unspecified site; Z98.890 Other specified postprocedural states; Z79.899 Other long term (current) drug therapy; Z79.82 Long term (current) use of aspirin

== ENCOUNTER → 2021-03-21 | Outpatient (CLI) | payer OTHER | LOC: SJCVCIMAG 08:16 | PROVIDERS: ATTEND Internal Medicine Cardiovascular Disease | DX: I07.1 Rheumatic tricuspid insufficiency (principal); I44.7 Left bundle-branch block, unspecified; R00.1 Bradycardia, unspecified; I25.10 Atherosclerotic heart disease of native coronary artery without angina pectoris; I10 Essential (primary) hypertension; E78.5 Hyperlipidemia, unspecified; G47.33 Obstructive sleep apnea (adult) (pediatric); E11.9 Type 2 diabetes mellitus without complications; M19.90 Unspecified osteoarthritis, unspecified site; K21.9 Gastro-esophageal reflux disease without esophagitis; E66.9 Obesity, unspecified; Z79.82 Long term (current) use of aspirin; Z79.899 Other long term (current) drug therapy ==

== ENCOUNTER → 2021-04-18 | Outpatient (CLI) | payer OTHER ==
[~2021-04-18] VITALS: Ht 182.9 cm; Wt 136.1 kg
[~2021-04-18] MED LIST changes: +XYOSTED50 MG/0.5 SUBQ
[2021-04-18 08:57] VITALS: BP 125/52
--- NOTE | 2021-04-18 09:15 | NUR ---
Pain Clinic Assessment: 1. History of Osteoarthritis: SPINE right hand History of Rheumatoid Arthritis: Not Applicable 2. Height: 6 ft. 0 in. 182.9 cm. Weight: 300.0 lb. oz. 136.080 kg. Patient's BMI: 40.7 3. Vital Signs: BP: 125/52 Pulse: 53 Resp: 20 Temp: 02 Sat: 98 ECG Mon: 4. Pain Intensity: 1 5. Fall Risk: Dizziness: N Needs help standing or walking: N Fallen in the last 3 months: N Fall risk comments: 6. Patient on Blood Thinner: None 7. History of Hypertension: Y 8. Opioid Therapy greater than 6 weeks: Y Opiate Contract Signed: 05/23/20 9. Risk Assessment Tool Provided: low-0 10. Functional Assessment Tool: 11. Recreational Drug Use: Never Drug Type: Tobacco Use: Former Smoker Tobacco Type: Amount or Packs/day: How Many Years: Alcohol Use: No Frequency: Quant:
--- NOTE | 2021-04-19 13:46 | HPC ---
[facility] [address] [place] [address] PAIN MANAGEMENT CONSULTATION Name: RAMON CEBALLOS JR [id number] Admission: 04/18/21 Attend Phys: Lilo Shaver Discharge: Date of : 55 Report #: [id number] THIS REPORT FOR: cc: Ander Gleason Steven F. DO Hocker, Amanda CNS ~ cc: Ruslan Hilario DO DATE OF SERVICE: 04/18/2021 CHIEF COMPLAINT: Low back pain, right lower extremity pain and paresthesias. HISTORY OF PRESENT ILLNESS: This is a pleasant 66-year-old gentleman who returns to the pain clinic today for ongoing medical treatment. Today, he is reporting a pain score of 1/10. He reports the lumbar epidural steroid injection that Dr. Ruslan Hilario performed in January has helped him at least 95%. He does report some ongoing tenderness in his low back and right buttock, that is worse with bending and activity as well as prolonged sitting. The patient states he is greatly improved and thankful for that epidural. He describes his pain today is just an achy, intermittent sensation. Today, he would like a renewal of his Lyrica and Percocet medications. He denies any constipation or daytime somnolence as a result of his medication therapy. ALLERGIES: No known drug allergies. CURRENT LIST OF MEDICATIONS: Oxycodone 10/325 p.r.n., Lyrica 150 b.i.d., Tylenol p.r.n., Voltaren p.r.n., Cialis, aspirin, omeprazole, Micardis, atorvastatin, bisoprolol, metformin, and testosterone. PQRS: 1. He has osteoarthritic changes in his back and hands. Denies any rheumatoid arthritis. Height is 6 feet, weight is 300, BMI is 40. 2. Vital signs 125/52, pulse is 53, respirations 20, oxygen sat is 98%. 3. Pain score is 1/10. 4. The patient denies any dizziness, does not need help walking or standing, has not fallen in the last 3 months. 5. The patient is not on any blood thinners, but does take medicine for hypertension. Opioid therapy is greater than 6 weeks; therefore, an opioid signed contract is on the chart. 6. Risk assessment is low. Functional assessment is 45/70. 7. Recreational drug he denies. He is a former smoker and does not drink alcohol. According to the prescription monitoring system, the patient is filling appropriately in a timely fashion. We will collect a random drug screen [place] [address] PAIN MANAGEMENT CONSULTATION Name: RAMON CEBALLOS Room #: REG [place] Young#: [id number] Admission: 04/18/21 Attend Phys: Lilo Shaver Discharge: Date of : 55 Report #: [id number] PHYSICAL EXAMINATION: GENERAL: This is a well-developed, well-nourished, well-hydrated class 2, morbidly obese 66-year-old male who appears his stated age, rating his pain score of 1/10 today. He is a good historian. HEENT: Normocephalic, atraumatic. Extraocular eye muscles are intact. EXTREMITIES: No clubbing, no cyanosis, no edema. MUSCULOSKELETAL: Lower extremity strength is symmetrical. Pain is in the sacral region of his back with negative straight leg raising today. Gait is mildly antalgic, favoring his left over his right. ASSESSMENT: 1. Lumbar radiculopathy. 2. Lumbosacral spondylosis with radiculopathy. 3. Facet arthroscopy of the lumbar spine. 4. Chronic low back pain. 5. Diabetic neuropathy. 6. Complex medical management utilizing scheduled opioid medications. We reviewed the fact that opiate medications are being used to provide analgesia adequate to support activities of daily living, not attempting to achieve a specific pain score on the 0-10 Visual Analog Scale. The current opiate medications are providing sufficient analgesia to allow the patient to participate in activities of daily living. The patient is not exhibiting any aberrant behavior suggestive of drug diversion. The patient is not having any adverse reactions to medications. The patient is not suffering from daytime somnolence or mental acuity changes. The patient is managing opiate-induced constipation with appropriate [id number] agents and dietary considerations. The patient was counseled on concern for caution with operating a motor vehicle while using opiate medications. A physical exam was performed and the patient's functional status was evaluated. All patients with back pain were advised against the bed rest greater than 4 days and were advised to return to normal activities. Pain score assessment was noted and the treatment plan was reviewed with the patient. All current medications, both prescribed and OTC were reviewed and reconciled on the electronic medical record. Tobacco screening was accomplished and smoking cessation was advised when indicated. BMI was noted and diet/exercise modification was recommended for all patients following outside normal parameters. I reviewed with the patient today their responsibilities to safeguard prescription medications, reviewed their responsibility to utilize medications only as prescribed by the physician. They are to seek and receive pain medications only from 1 physician group ([facility]). They are to use 1 pharmacy and keep the clinic informed if they change pharmacies. Their responsibilities include making followup visits in a timely fashion and to avoid [address] [address] PAIN MANAGEMENT CONSULTATION Name: RAMON CEBALLOS JR Room #: REG [facility]#: [id number] Admission: 04/18/21 Attend Phys: Lilo Georgeedd Discharge: Date of : 55 Report #: [id number] abrupt discontinuation of medication usage. Their responsibilities further include bringing their medications (bottles from the pharmacy with residual pills) to the visit for possible confirmation of pill counts and the patient understands it is their responsibility to submit to random drug screens to ensure both that the medications prescribed are present, and that no other controlled substances are present. All prescriptions provided today were generated electronically. PLAN: 1. We discussed treatment options with the patient today. The patient states he had significant improvement and continues to feel much improved since the lumbar epidural steroid injection. We discussed the timetable in which he may have another one if his symptoms return to that severe level. The patient will call as needed for further epidural steroid injections. 2. We did discuss that he is tolerating the generic Lyrica 150 mg twice a day. He had had issues with the generic at the lower dose, but feels this level is adequate in controlling his neuropathy in his feet. We will continue Lyrica 150 b.i.d., #60 with 1 refill and this will be sent electronically. 3. We did discuss his Percocet use, the patient has been able to tolerate slightly less medications on a daily basis since his epidural. I encouraged him lowest most effective dose. We discussed decreasing this number that he has provided each month that will continue at the current level for the next 2 months and then hopefully decrease. I did encourage the patient to take only as needed and not on the schedule. Scripts will be sent electronically by Dr. Hilario for Cool Lumens , #90 for today and 4-week supply. Time spent on the patient in consultation, reviewing recent studies and clinical notes and physician reports, physical examination and correlation of findings and medical documentation to determine possible treatment options, 15 minutes. Time spent preparing for appointment, reviewing prescription monitoring system reports, reviewing previous records and proposed treatment options, reviewing current medications, 5 minutes. Time spent preparing and sending electronic prescriptions and collaborating physician, Dr. Ruslan Hilario and documentation of visit and plan of treatment, 5 minutes. Total time spent 25 minutes. <ELECTRONICALLY SIGNED> By: Lilo Shaver 04/19/21 1346 [id number] Lilo Shaver /nt
== END ==
LOC: PAIN 06:47
PROVIDERS: ATTEND Clinical Nurse Specialist Adult Health
DX: M47.27 Other spondylosis with radiculopathy, lumbosacral region (principal); E11.40 Type 2 diabetes mellitus with diabetic neuropathy, unspecified; Z79.891 Long term (current) use of opiate analgesic; Z79.899 Other long term (current) drug therapy

== ENCOUNTER → 2021-05-24 | Outpatient (CLI) | payer OTHER ==
[~2021-05-24] VITALS: Ht 182.9 cm; Wt 135.4 kg
[~2021-05-24] MED LIST changes: +NEURONTIN 300M300 M2 PO
[2021-05-24 08:33] VITALS: BP 109/53
--- NOTE | 2021-05-24 08:38 | NUR ---
Pain Clinic Assessment: 1. History of Osteoarthritis: SPINE right hand History of Rheumatoid Arthritis: Not Applicable 2. Height: 6 ft. 0 in. 182.9 cm. Weight: 298.4 lb. oz. 135.354 kg. Patient's BMI: 40.5 3. Vital Signs: BP: 109/53 Pulse: 57 Resp: 20 Temp: 02 Sat: 98 ECG Mon: 4. Pain Intensity: 1 5. Fall Risk: Dizziness: N Needs help standing or walking: N Fallen in the last 3 months: N Fall risk comments: 6. Patient on Blood Thinner: None 7. History of Hypertension: Y 8. Opioid Therapy greater than 6 weeks: Y Opiate Contract Signed: 05/23/20 9. Risk Assessment Tool Provided: low-0 10. Functional Assessment Tool: 11. Recreational Drug Use: Never Drug Type: Tobacco Use: Former Smoker Tobacco Type: Amount or Packs/day: How Many Years: Alcohol Use: No Frequency: Quant:
--- NOTE | 2021-05-24 14:23 | HPC ---
[facility] [address] [place] [address] PAIN MANAGEMENT CONSULTATION Name: FABRICE CEBALLOS JR [facility] [id number] Admission: 05/24/21 Attend Phys: Lilo Shaver Discharge: Date of : 55 Report #: [id number] THIS REPORT FOR: cc: Ander Gleason,Lilo Jurado ~ cc: Ander Gleason MD, Ruslan Hilario DO DATE OF SERVICE: 05/24/2021 CHIEF COMPLAINT: Low back pain, bilateral lower extremity pain and paresthesias. HISTORY OF PRESENT ILLNESS: This is a pleasant 66-year-old gentleman who returns to the pain clinic today to discuss his pain issues. Today, the patient is reporting increasing leg cramps and Charley horses in his lower extremities that happened in the middle of the night. It does happen in both legs he reports, usually not in the same time, though it has occasionally. He has stopped Lyrica since seeing us last month and he states his leg cramps have improved. He is unsure if that is the cause, but he reports taking his blood sugars and those have not been affected. He also reports recently had his potassium levels drawn. They were within the normal limits, so he believes that was the only change recently that may have caused the leg cramps. He does continue with low back pain and radiates mostly down the right leg to his feet, but does occasionally have left leg pain and has neuropathy in his feet bilaterally. Fabrice reports taking oxycodone and with that medication, his pain score is a 1/10. Typically, his pain is worse with standing, walking and prolonged activity, but overall he felt that medication has been beneficial for him. He denies significant constipation. He does eat several fruits and vegetables on a daily basis to help with constipation issues. Today, he would like to discuss any options for his leg cramps as well as renew his opioid medication. ALLERGIES: No known drug allergies. CURRENT LIST OF MEDICATIONS: Testosterone, oxycodone 10/325, Voltaren, Cialis, aspirin, omeprazole, Micardis, Lipitor, bisoprolol, and metformin in ER. PQRS: 1. He has arthritic issues in his spine and hand. Denies any rheumatoid arthritis. Height is 6 feet, weight is 298, BMI is 40. 2. Vital signs: 109/53, pulse is 57, respirations 20, oxygen sat is 98%. 3. Pain score is 1/10. 4. Denies dizziness, does not need assistance with ambulation, has not fallen in the last 3 months. The patient is not on any blood thinners, but does have a history of hypertension. 5. Opioid therapy is greater than 6 weeks; therefore, an opioid signed contract [address] [address] PAIN MANAGEMENT CONSULTATION Name: LINFABRICE ELIJAH Room #: REG [facility] Hannah#: [id number] Admission: 05/24/21 Attend Phys: Lilo Shaver Discharge: Date of : 55 Report #: [id number] is on the chart. 6. Risk assessment is low. Functional assessment is 45/70. 7. Recreational drug use, he denies. He is a former smoker and does not drink alcohol. According to the prescription monitoring system, he filled his prescription in March and has not filled his April prescription. His morphine milliequivalent according to the CDC guidelines is 45. PHYSICAL EXAMINATION: GENERAL: This is an alert and orientated well-developed, well-nourished, class 2 morbidly obese 66-year-old gentleman who appears his stated age, rating his current pain score 1/10 today. HEENT: Normocephalic, atraumatic. Extraocular eye muscles are intact. Mucous membranes are moist. He is wearing a mask for COVID precautions. EXTREMITIES: No clubbing, no cyanosis, no edema. MUSCULOSKELETAL: Lower extremity strength is symmetrical with good sensation from L1 to S2 with neuropathy symptoms in his feet bilaterally from his diabetes. He has discomfort in the lumbosacral region of his back that radiates into his legs bilaterally, greater on the left than the right following the L3-L4, L4-L5, L5-S1 dermatomal distribution. Lower extremity strength is symmetrical. He has negative straight leg raising today. ASSESSMENT: 1. Lumbar radiculopathy. 2. Lumbosacral spondylosis with radiculopathy. 3. Facet arthropathy of the lumbar spine. 4. High-grade canal stenosis at the L3-L4, L4-L5 level. 5. Diabetic neuropathy. 6. Complex medical management utilizing scheduled opioid medications. 7. Chronic low back pain. PLAN: 1. We discussed treatment options with the patient today. The patient feels overall the opioid medication has been beneficial in decreasing his pain. He reports being out today and needing refills. I explained to him that there should be a prescription at the pharmacy. He does need to ask for an electronic prescription refill that was sent, not a refill of his medications as they do not refill opioids. He may fill his second prescription today and then Dr. Ruslan Hilario will send a 4 and 8-week prescription for him, so he does not need to return in 1 more month. Scripts will be sent for #90 tablets of Percocet 10/325. 2. The patient is complaining of leg cramping. He associated it with his Lyrica and had stopped that medication. He does have significant diabetic neuropathy in his feet plus high-grade stenosis in his back at multiple levels. I believe this may be contributed to his leg cramps. We will trial a gabapentin [facility] [address] [place] [address] PAIN MANAGEMENT CONSULTATION Name: FABRICE CEBALLOS JR Room #: REG [place] Young#: [id number] Admission: 05/24/21 Attend Phys: Lilo Shaver Discharge: Date of : 55 Report #: [id number] prescription instructing the patient to take 300 at bedtime for five nights, then increasing to 600 mg at bedtime for five nights, then if leg cramps continue, he may take one in the morning and two at night. We encouraged lowest most effective dose and the patient to stop when he feels significant relief with minimal side effects. Scripts sent for #90 with 1 additional refill. The patient verbalized understanding how to take that medication. 3. The patient will return in 2-3 months depending on his pain needs. Time spent with the patient in consultation, reviewing pertinent imaging and recent studies, clinical notes and physician reports, physical examination and correlation of physical findings and medical documentation to determine possible treatment options, 16 minutes. Time spent in preparation for appointment, reviewing prescription monitoring system reports, reviewing previous records and proposed treatment options and reviewing current medications, 5 minutes. Time spent preparing and sending electronic prescriptions with collaborating physician, Dr. Ruslan Hilario, documentation of visit and plan of treatment, 5 minutes. Total time spent 26 minutes. <ELECTRONICALLY SIGNED> By: Lilo Shaver 05/24/21 1423 [id number] Lilo Shaver /nt
== END ==
LOC: PAIN 08:06
PROVIDERS: ATTEND Clinical Nurse Specialist Adult Health
DX: M47.26 Other spondylosis with radiculopathy, lumbar region (principal); M47.27 Other spondylosis with radiculopathy, lumbosacral region; M48.061 Spinal stenosis, lumbar region without neurogenic claudication; G89.29 Other chronic pain; E11.40 Type 2 diabetes mellitus with diabetic neuropathy, unspecified; I10 Essential (primary) hypertension; Z79.82 Long term (current) use of aspirin; Z79.899 Other long term (current) drug therapy; Z79.84 Long term (current) use of oral hypoglycemic drugs

== ENCOUNTER → 2021-09-13 | Outpatient (CLI) | payer OTHER ==
[~2021-09-13] VITALS: Ht 182.9 cm; Wt 137.9 kg
--- NOTE | ~2021-09-13 | HPC ---
[facility] [address] [place] [address] PAIN MANAGEMENT CONSULTATION Name: RAMON CEBALLOS JR [id number] Admission: 09/13/21 Attend Phys: Ruslan Hilario DO Discharge: Date of : 55 Report #: [id number] THIS REPORT FOR: cc: Dannielle Hurley MD, Julie MD Johnson, James E. DO ~ cc: DATE OF SERVICE: 09/13/2021 REFERRING PHYSICIAN: ____. CHIEF COMPLAINT: Low back pain, bilateral upper buttock and posterolateral thigh pain. HISTORY OF PRESENT ILLNESS: As you know, the patient is a very pleasant 66-year-old morbidly obese male complaining of recurrence of low back pain and bilateral upper buttock pain consistent with his facet arthropathy. The patient underwent radiofrequency lesioning of medial branch nerves of the lumbar spine about a year ago with excellent benefit. He states his pain was well controlled until March or April when he began experiencing progressively worsening symptoms. He has gained some weight since that time and this has exacerbated his symptoms. He returns today in followup visit to adjust medications as the 3 oxycodone a day is no longer providing long-term benefit. He is requesting a possible increase to 4 times a day. He is also wanting to discuss the possibility of repeating the medial branch nerve blocks from a year ago that were extremely effective at treating his symptoms. He is denying new injury, new trauma or any changes in medication management since our last visit. ALLERGIES: No known drug allergies. CURRENT MEDICATIONS: Percocet one tab p.o. q. 8 hours p.r.n. for pain, gabapentin 300 mg t.i.d., testosterone intramuscular every 2 weeks, acetaminophen 500 mg once a day, diclofenac sodium 75 mg b.i.d., Cialis 10 mg p.r.n., aspirin 81 mg per day, omeprazole 40 mg per day, telmisartan 80 mg per day, atorvastatin 40 mg per day, bisoprolol 5 mg once a day, metformin 500 mg 4 times a day. SOCIAL HISTORY: The patient denies tobacco, alcohol or IV or illicit drug use. He is unaccompanied today. IMAGING: No new imaging available. PQRS: The patient has known arthritic changes of the lumbar spine, specifically the right hand. No rheumatoid arthritis. He is placing pain intensity anywhere from 6-7/10 at its worst, it is 3/10 with medications. The patient is not a fall risk, has not had a fall in last 3 months. He is not on blood thinners, [address] [address] PAIN MANAGEMENT CONSULTATION Name: RAMON CEBALLOS Room #: REG [facility].#: [id number] Admission: 09/13/21 Attend Phys: Ruslan Hilario DO Discharge: Date of : 55 Report #: [id number] but is treated for hypertension. He is on chronic opioids, has a low opioid addiction potential based on assessment tool. Pain impact is 45/70, moderate to severe interference of daily activities secondary to pain. PHYSICAL EXAMINATION: VITAL SIGNS: Blood pressure 125/83, pulse 53, respiratory rate 14 and unlabored. The patient is 97% on room air. Height 6 feet tall, weight 304 pounds, BMI calculated 41.2. GENERAL: Well-developed, well-nourished, well-hydrated class III morbidly obese 66-year-old male, appearing stated age, pain is rated anywhere from 6-7/10 without medications, 3/10 with medications. HEENT: Normocephalic, atraumatic. Pupils equal, round and responsive. He is wearing a mask in compliance with COVID-19 regulations. EXTREMITIES: Show no clubbing, no cyanosis and no edema. MUSCULOSKELETAL: Lower extremity strength equal and symmetrical 5/5, intact to light touch from L1 through S2 dermatomes. Seated straight leg raising negative. Supine straight leg raising negative. ALYCIA test is negative. Modified Gaenslen's positive for axial low back pain. Ankle clonus negative. Babinski is negative. Lumbar provocation testing including extension, rotation, lateral flexion all intensify axial back pain. This is limited by body habitus. ASSESSMENT: 1. Lumbosacral spondylosis without radiculopathy. 2. Facet arthropathy of lumbar spine. 3. High-grade central canal stenosis at L3-L4, L4-L5. 4. Diabetic neuropathy. 5. Complicated medication management utilizing scheduled medications. 6. Chronic intractable pain. PLAN: 1. The patient returns today in followup visit to discuss options for treatment for his recurrent low back pain and bilateral upper buttock pain. He states this is the same pain he had prior to the radiofrequency lesioning procedures performed in 07/2020. The patient returns stating that his pain has slowly and progressively begun to worsen since 03/2021. This is consistent with the timeframe for a typical radiofrequency lesioning procedure. The patient wants to begin the process of medial branch nerve blocks and heading back towards radiofrequency lesioning as his symptoms have now become problematic enough that it is interfering with daily activities. We have agreed that symptoms he is experiencing appear to be related to the facet joints and that the medial branch nerve blocks and radiofrequency lesioning would be appropriate. We will schedule the patient back to our clinic next week per his request on Saturday to undergo a bilateral L3, L4, L5 medial branch block. If this is ____, move forward with radiofrequency lesioning. The patient is agreeable with plan. 2. To address the current pain level the patient is experiencing and the noted end of dose failure of 3 tablets per day of Percocet, we will increase the [facility] [address] [place] [address] PAIN MANAGEMENT CONSULTATION Name: RAMON CEBALLOS JR Room #: REG CLI [facility]#: [id number] Admission: 09/13/21 Attend Phys: Ruslan Hilario DO Discharge: Date of : 55 Report #: [id number] patient's medication to 4 times a day. This will provide the patient with another dose of Percocet through the daytime hours, which will help improve pain. The patient is agreeable with that adjustment. 3. We reviewed the fact that opiate medications are being used to provide analgesia adequate to support activities of daily living, not attempting to achieve a specific pain score on the 0-10 Visual Analog Scale. The current opiate medications are providing sufficient analgesia to allow the patient to participate in activities of daily living. The patient is not exhibiting any aberrant behavior suggestive of drug diversion. The patient is not having any adverse reactions to medications. The patient is not suffering from daytime somnolence or mental acuity changes. The patient is managing opiate-induced constipation with appropriate sxon-kvv-ieyhvos agents and dietary considerations. The patient was counseled on concern for caution with operating a motor vehicle while using opiate medications. A physical exam was performed and the patient's functional status was evaluated. All patients with back pain were advised against the bed rest greater than 4 days and were advised to return to normal activities. Pain score assessment was noted and the treatment plan was reviewed with the patient. All current medications, both prescribed and OTC were reviewed and reconciled on the electronic medical record. Tobacco screening was accomplished and smoking cessation was advised when indicated. BMI was noted and diet/exercise modification was recommended for all patients following outside normal parameters. I reviewed with the patient today their responsibilities to safeguard prescription medications, reviewed their responsibility to utilize medications only as prescribed by the physician. They are to seek and receive pain medications only from 1 physician group ( [facility]). They are to use 1 pharmacy and keep the clinic informed if they change pharmacies. Their responsibilities include making followup visits in a timely fashion and to avoid abrupt discontinuation of medication usage. Their responsibilities further include bringing their medications (bottles from the pharmacy with residual pills) to the visit for possible confirmation of pill counts and the patient understands it is their responsibility to submit to random drug screens to ensure both that the medications prescribed are present, and that no other controlled substances are present. All prescriptions provided today were generated electronically. 4. The patient was provided prescription of Percocet 10/325 one tab p.o. q. 6 hours p.r.n. for pain. I have given the patient #120 tablets to release today, 4 weeks from today, 8 weeks from today, 3 months' worth of medication. All prescriptions sent via e-scribe to local pharmacy. 5. The patient was provided prescription of gabapentin 300 mg dose 1 tab p.o. t.i.d. I have given the patient a prescription of #90 tablets with 2 refills. 6. We will see the patient back in followup visit in 1 week. At that time, we [facility] [address] [place] [address] PAIN MANAGEMENT CONSULTATION Name: RAMON CEBALLOS JR Room #: [facility].#: [id number] Admission: 09/13/21 Attend Phys: Ruslan Hilario DO Discharge: Date of : 55 Report #: [id number] will have the patient undergo medial branch nerve blocks of the lumbar spine. If these are then ____, move forward with radiofrequency lesioning. By: [id number] Ruslan Hilario DO /nt
[2021-09-13 08:14] VITALS: BP 125/83
--- NOTE | 2021-09-13 08:32 | NUR ---
Pain Clinic Assessment: 1. History of Osteoarthritis: SPINE right hand History of Rheumatoid Arthritis: Not Applicable 2. Height: 6 ft. 0 in. 182.9 cm. Weight: 304.0 lb. oz. 137.894 kg. Patient's BMI: 41.2 3. Vital Signs: BP: 125/83 Pulse: 53 Resp: 14 Temp: 02 Sat: 97 ECG Mon: 4. Pain Intensity: 6-7 WORSE 3 W/MEDS 5. Fall Risk: Dizziness: N Needs help standing or walking: N Fallen in the last 3 months: N Fall risk comments: 6. Patient on Blood Thinner: None 7. History of Hypertension: Y 8. Opioid Therapy greater than 6 weeks: Y Opiate Contract Signed: 05/23/20 9. Risk Assessment Tool Provided: low-0 10. Functional Assessment Tool: 11. Recreational Drug Use: Never Drug Type: Tobacco Use: Former Smoker Tobacco Type: Amount or Packs/day: How Many Years: Alcohol Use: No Frequency: Quant:
== END ==
LOC: PAIN 06:53
PROVIDERS: ATTEND Anesthesiology Pain Medicine
DX: G89.29 Other chronic pain (principal); M48.061 Spinal stenosis, lumbar region without neurogenic claudication; M47.816 Spondylosis without myelopathy or radiculopathy, lumbar region; E11.40 Type 2 diabetes mellitus with diabetic neuropathy, unspecified; Z79.899 Other long term (current) drug therapy

== ENCOUNTER → 2021-09-20 | Outpatient (CLI) | payer OTHER ==
[~2021-09-20] VITALS: Ht 182.9 cm; Wt 139.3 kg
--- NOTE | ~2021-09-20 | HPC ---
[facility] [place] [address] PAIN MANAGEMENT CONSULTATION Name: RAMON CEBALLOS JR Room #: REG [facility].#: [id number] Admission: 09/20/21 Attend Phys: Ruslan Hilario DO Discharge: Date of : 55 Report #: [id number] THIS REPORT FOR: cc: Dannielle Hurley MD, Julie MD Johnson,Ruslan Schneider DO ~ DATE OF SERVICE: 09/20/2021 CHIEF COMPLAINT: Low back pain, bilateral upper buttock and posterolateral thigh pain. HISTORY OF PRESENT ILLNESS: As you know, the patient is a very pleasant 66-year-old morbidly obese male complaining of recurrence of low back pain, bilateral upper buttock pain consistent with facet arthropathy from the lumbar region. The patient has done very well with radiofrequency lesioning medial branch nerves of the lumbar spine, but unfortunately symptoms have reoccurred. He denies injury or trauma. The patient returns today in follouwup visit to begin medial branch nerve blocks with possible radiofrequency lesioning in the very near future. He places his current pain score at a level of 7/10. He denies injury or trauma that may have led to symptom development. There have been no changes in the patient's medication management since 09/13/2021 appointment. He returns for medial branch nerve blocks with preparation to move on with radiofrequency lesioning assuming they are effective. ALLERGIES: No known drug allergies. CURRENT MEDICATIONS: See chart. SOCIAL HISTORY: The patient denies tobacco, alcohol or IV or illicit drug use. He is unaccompanied today. IMAGING: No new imaging available. PQRS: The patient has known arthritic changes of the lumbar spine and bilateral hands, right greater than left. He denies rheumatoid arthritis. He is placing pain intensity today 7/10. He is not a fall risk, has not had a fall in last 3 months. He is not on blood thinners, but is treated for hypertension. He is on chronic opioids, has a low opioid addiction potential. Pain impact remains elevated at 45/70, severe interference of daily activities secondary to pain. PHYSICAL EXAMINATION: VITAL SIGNS: Blood pressure 140/71, pulse 64, respiratory rate 18 and unlabored. The patient 98% on room air, height 6 feet tall, weight 307.2 pounds, BMI calculated 41.7. GENERAL: Well-developed, well-nourished, well-hydrated class III, morbidly obese 66-year-old male appearing stated age, pain is rated today 7/10. HEENT: Normocephalic, atraumatic. He is wearing [place] [address] PAIN MANAGEMENT CONSULTATION Name: RAMON CEBALLOS Room #: REG [facility].#: [id number] Admission: 09/20/21 Attend Phys: Ruslan Hilario DO Discharge: Date of : 55 Report #: [id number] COVID-19 regulations and hospital policy. EXTREMITIES: Show no clubbing, no cyanosis and no appreciable edema. MUSCULOSKELETAL: Lower extremity strength remains symmetrical 5/5, intact to light touch from L1 through S2 dermatomes. Seated straight leg raising negative. Supine straight leg raising negative. Fabere's test is negative. Modified Gaenslen's again positive for axial back pain. ASSESSMENT: 1. Lumbosacral spondylosis without radiculopathy. 2. Facet arthropathy of lumbar spine. 3. High-grade central canal stenosis at L3-L4 and L4-L5. 4. Diabetic neuropathy. 5. Complicated medication management utilizing scheduled medications. 6. Chronic intractable pain. PLAN: 1. The patient returns today in followup visit requesting medial branch nerve blocks to be performed. He has done well with previous radiofrequency lesioning and he is considering undergoing the procedure again, this is part of the diagnostic process leading up to radiofrequency lesioning. The patient has been advised risks and benefits of the procedure, states understood and wished to proceed. 2. No medication changes made at today's visit. The patient will continue current medical therapy as prior prescribed. 3. We will plan to see the patient back in followup visit for radiofrequency lesioning of the medial branch nerves of the lumbar spine, assuming he notes greater than 70% improvement in overall pain with the injections provided today. It appears that we will start on the left, addressing the left L3, L4 and L5 medial branch nerves initially and then proceed to the right. The patient is agreeable with that plan. PROCEDURE NOTE. DESCRIPTION OF PROCEDURE: Bilateral L3, L4, L5 medial branch nerve blocks under fluoroscopic guidance. After obtaining written consent, the patient was taken back to fluoroscopy suite, placed in prone position with pillow under abdomen to decrease lumbar lordosis. The skin overlying lumbosacral area was then prepped and draped in aseptic fashion. The L4 transverse process corresponding the L3 medial branch nerve and the L5 transverse process corresponding the L4 medial branch nerve were visualized under fluoroscopy. This was done bilaterally. Skin and subcutaneous tissue overlying target sites of injections were then anesthetized with 1 mL of 1% preservative-free lidocaine utilizing a 27-gauge 1-1/4-inch needle. [address] [address] PAIN MANAGEMENT CONSULTATION Name: RAMON CEBALLOS JR Room #: REG [facility]#: [id number] Admission: 09/20/21 Attend Phys: Ruslan Hilario DO Discharge: Date of : 55 Report #: [id number] Four 22-gauge 6-inch Chiba needles with bent tips were advanced under fluoroscopic guidance using a superior to inferior, lateral to medial approach to the dorsal, superior and medial aspect of the base of transverse processes. Tarrs were then directed caudad to reach target locations. Oblique view facilitated needle placement with properly positioned needles within the middle of the "eye" of the Francisco dog. This was done at each level. At each site, needles rested on periosteum. After negative aspiration for heme, 1 mL of bupivacaine 0.5% was injected slowly to avoid forcing the solution away from the target points. Tarrs were then removed. The L5 dorsal ramus block both on the left and right side was performed using a slightly oblique approach under fluoroscopic guidance, placing the needle within the groove between the sacral ala and the superior articular process of S1. Tarrs rested on periosteum. After negative aspiration for heme, 1 mL of bupivacaine 0.5% was injected slowly to avoid forcing the solution away from the target points. The needles were then removed. Sterile bandage placed over injection site. The patient tolerated the procedure well, carefully escorted to recovery room in stable condition. No apparent complications. VAS before procedure, rated at 7/10, VAS just prior to leaving was 3-4/10. After meeting our discharge criteria, the patient discharged home. By: [id number] Ruslan Hilario DO /nt
[2021-09-20 08:20] VITALS: BP 140/71
--- NOTE | 2021-09-20 08:31 | NUR ---
Pain Clinic Assessment: 1. History of Osteoarthritis: SPINE right hand History of Rheumatoid Arthritis: Not Applicable 2. Height: 6 ft. 0 in. 182.9 cm. Weight: 307.2 lb. oz. 139.345 kg. Patient's BMI: 41.7 3. Vital Signs: BP: 140/71 Pulse: 64 Resp: 18 Temp: 02 Sat: 98 ECG Mon: 4. Pain Intensity: 7 5. Fall Risk: Dizziness: N Needs help standing or walking: N Fallen in the last 3 months: N Fall risk comments: 6. Patient on Blood Thinner: None 7. History of Hypertension: Y 8. Opioid Therapy greater than 6 weeks: Y Opiate Contract Signed: 05/23/20 9. Risk Assessment Tool Provided: low-0 10. Functional Assessment Tool: 11. Recreational Drug Use: Never Drug Type: Tobacco Use: Former Smoker Tobacco Type: Amount or Packs/day: How Many Years: Alcohol Use: No Frequency: Quant:
== END | disposition home or self-care (01) ==
LOC: PAIN 07:38
PROVIDERS: ATTEND Anesthesiology Pain Medicine
DX: M47.817 Spondylosis without myelopathy or radiculopathy, lumbosacral region (principal); M47.816 Spondylosis without myelopathy or radiculopathy, lumbar region; M48.061 Spinal stenosis, lumbar region without neurogenic claudication; G89.29 Other chronic pain; I10 Essential (primary) hypertension; E11.40 Type 2 diabetes mellitus with diabetic neuropathy, unspecified; M19.90 Unspecified osteoarthritis, unspecified site; Z98.890 Other specified postprocedural states; Z79.899 Other long term (current) drug therapy; Z79.891 Long term (current) use of opiate analgesic; Z87.891 Personal history of nicotine dependence